=== PATIENT | female | born 1950 | race Caucasian/White ===

== ENCOUNTER 2017-02-21 20:51 | Inpatient (IN) ==
[2017-02-21 23:02] LABS: Red Cell Distribution Width 12.3 % (11.5-14.5)
[2017-02-21 23:03] LABS: Hemoglobin 14.1 g/dL (11.5-15.4); Mean Corpuscular HGB Conc 36.2 g/dL (31.6-35.5); Mean Corpuscular Hemoglobin 31.8 pg (28.0-33.3); Mean Platelet Volume 9.7 fL (9.4-12.4); Red Blood Count 4.43 M/mcL (3.82-4.97)
[2017-02-21 23:17] LABS: Alanine Aminotransferase 37 Units/L (0-55); Albumin 3.3 g/dL (3.5-5.0); Albumin/Globulin Ratio 1.1 (1.1-2.2); Alkaline Phosphatase 106 Units/L (38-126); Aspartate Amino Transferase 84 Units/L (5-34); BUN/Creatinine Ratio 15 (6-26); Bilirubin,Direct 0.5 mg/dL (0.0-0.5); Bilirubin,Indirect 0.6 mg/dL (0.0-1.2); Bilirubin,Total 1.1 mg/dL (0.2-1.2); Blood Urea Nitrogen 11 mg/dL (7-20); Calcium 8.4 mg/dL (8.6-10.8); Carbon Dioxide 22 mEq/L (19-29); Chloride 98 mEq/L (98-109); Glucose 110 mg/dL (70-99); Lipase 15 Units/L (8-78); Osmolality,Calculated 274 (280-300); Potassium 2.9 mEq/L (3.5-4.5); Sodium 132 mEq/L (136-145); Total Protein 6.3 g/dL (6.0-8.3); eGFR For African Americans > 60 (> 60); eGFR For Non-African Americans > 60 (> 60)
[2017-02-21] MEDS ORDERED: 0.9 % Sodium Chloride 1,000 ML IVC ONE (23:24)
[2017-02-21] MEDS ORDERED: Ondansetron 4 MG/2 ML VIAL IVP ONE (23:31)
[2017-02-21 23:32] LABS: Platelet Count 85 K/mcL (140-400)
[2017-02-21] MEDS ORDERED: *HR* Morphine 2 MG/ML SYRINGE IVP ONE (23:32)
[2017-02-21 23:42] LABS: Lymphocytes # 0.4 K/mcL (0.6-4.6); Monocytes # 0.2 K/mcL (0.0-1.3)
[2017-02-21 23:43] LABS: Neutrophils # 1.3 K/mcL (1.6-8.9); Platelet Estimate Decreased (Normal); Reactive Lymphocytes Present (Not Present)
--- NOTE | 2017-02-21 23:53 | Emergency Department Note ---
Disposition Clinical Impression: Hypokalemia Nausea & vomiting Qualifiers: Vomiting type: unspecified Vomiting Intractability: unspecified Qualified Code( s): R11.2 - Nausea with vomiting, unspecified Disposition: Admitted As Inpatient Condition: Good Time of Disposition: 02:20 General Adult HPI - General Chief complaint: ED Abdominal Pain Stated complaint: possible blockage Time Seen by Provider: 02/21/17 23:07 Source: patient Limitations: no limitations Nursing Notes Reviewed: Yes Vital Signs Reviewed: Yes - History of Present Illness HPI Narrative: 65-year-old female since with abdominal pain. She states she has not had a bowel movement 2 days. She had been seen at an urgent care prior to arrival, and was told that she might have a blockage after she had received an x-ray. They had recommended she be seen here in the emergency department. She arrived via squad. She has been vomiting. She reports a fever at home of 101 orally, and squad reports show fever of 103. She is comes her emesis is yellow urine Pain Scale: 6 - Related Data Allergies Allergy/AdvReac Type Severity Reaction Status Date / Time pentazocine [From Jazmin] AdvReac Hives Verified 03/08/16 09:09 Sulfa (Sulfonamide AdvReac Headache Verified 03/08/16 09:09 Antibiotics) All systems ED: reviewed and negative except as stated. Constitutional: Reports: fever Eyes: Denies: vision change ENT ED: Denies: throat pain Cardiovascular: Denies: palpitations Respiratory: Denies: dyspnea Gastrointestinal: Reports: as per HPI. Denies: diarrhea, constipation Genitourinary: Denies: dysuria Musculoskeletal: Denies: back pain, neck pain Integumentary: Denies: rash Neurological: Denies: headache Psychiatric: Denies: anxiety Endocrine: Denies: fatigue Hematological/Lymphatic: Denies: easy bleeding Allergic/Immunologic: Denies: facial swelling Past Medical History - Past Medical History Medical history: Reports: hypertension - Social History Smoking Status: Never smoker Smokeless Tobacco Status: No Alcohol use: Reports: none Drug use: Reports: none Physical Exam - General Limitations: no limitations General appearance: alert, in no apparent distress - Head Head exam: normocephalic - Eye Eye exam: Present: EOMI. Absent: conjunctival injection - ENT ENT exam: mucous membranes moist - Neck Neck exam: Present: full ROM - Chest Chest inspection: Present: symmetric chest wall rise - Respiratory Respiratory exam: Present: normal lung sounds bilaterally. Absent: respiratory distress - Cardiovascular Cardiovascular exam: Present: normal rhythm, tachycardia - Abdominal Exam Abdominal exam: Present: soft, tenderness Abdominal tenderness: Present: RUQ, LUQ - Extremities Exam Extremities exam: Present: normal inspection, full ROM, normal capillary refill - Back Exam Back exam: Present: full ROM, CVA tenderness (R) - Neurological Exam Neurological exam: Present: alert, oriented X3 - Psychiatric Psychiatric exam: Present: normal affect, normal mood - Skin Skin exam: Present: warm, dry, intact, normal color. Absent: rash, cyanosis, diaphoresis Course Course Narrative: Patient arrives by squad from a local urgent care. Concern for abdominal pain, urgent care was concerned for a possible blockage. Patient is slightly tachycardic. She is febrile. Patient seen and examined. She is in no acute distress but looks uncomfortable. She complains of shortness of breath, fever, right and left upper abdominal pain, decreased bowel movements, and right-sided low back pain. Workup initiated analgesics ordered. The patient has been febrile and tachycardic will initiate septic workup as well. - Reevaluation(s) Reevaluation #1: Lab work shows white blood cell, 2.0, with decreased neutrophils. Patient denies any history of splenic disorders, chemotherapy, immunecompromised state, or biologic medications. Patient is also hypokalemic. Discussed patient with Dr. Paz, who agreed with IV potassium since patient is on nothing by mouth, and CT abdomen for abdominal pain. Patient's renal function within limits. Time: 00:02 Reevaluation #2: Pt discussed with and accepted by hospitalist Dr. Maxwell Time: 01:18 Vital Signs Temperature 99 F 02/21/17 21:11 Pulse Rate 104 02/21/17 21:11 Respiratory Rate 20 02/21/17 21:11 Blood Pressure 118/74 02/21/17 21:11 O2 Sat by Pulse Oximetry 94 02/21/17 21:11 Temperature 99 F 02/21/17 21:11 Pulse Rate 91 02/22/17 01:22 Respiratory Rate 16 02/22/17 01:22 Blood Pressure 124/70 02/22/17 01:22 O2 Sat by Pulse Oximetry 97 02/22/17 01:22 Oxygen Delivery Oxygen Delivery Room Air Medical Decision Making - Lab Data Lab results reviewed: Yes I reviewed the patient's lab results. Result diagrams: 02/21/17 22:52 02/21/17 22:52 Lab Results 02/21/17 02/21/17 02/21/17 Range/Units 22:52 22:52 22:52 WBC 2.0 L (4.3-11.1) K/mcL RBC 4.43 (3.82-4.97) M/mcL Hgb 14.1 (11.5-15.4) g/dL Hct 39.0 (35.3-44.9) % MCV 88.0 (83.0-100.0) fL MCH 31.8 (28.0-33.3) pg MCHC 36.2 H (31.6-35.5) g/dL RDW 12.3 (11.5-14.5) % Plt Count 85 L (140-400) K/mcL MPV 9.7 (9.4-12.4) fL Seg Neutrophils % 49.0 % Band Neutrophils % 14.0 H (0-4) % Lymphocytes % 22.0 % Monocytes % 9.0 % Eosinophils % 2.0 % Basophils % 2.0 % Myelocytes % 2.0 H (0) % Neutrophils # 1.3 L (1.6-8.9) K/mcL Lymphocytes # 0.4 L (0.6-4.6) K/mcL Monocytes # 0.2 (0.0-1.3) K/mcL Eosinophils # 0.0 (0.0-0.6) K/mcL Basophils # 0.0 (0.0-0.2) K/mcL Reactive Lymphocytes Present A (Not Present) Platelet Estimate Decreased L (Normal) ESR (0-15) mm/hr Sodium 132 L (136-145) mEq/L Potassium 2.9 L (3.5-4.5) mEq/L Chloride 98 (98-109) mEq/L Carbon Dioxide 22 (19-29) mEq/L BUN 11 (7-20) mg/dL Creatinine 0.73 (0.57-1.11) mg/dL Est GFR ( Amer) > 60 (> 60) Est GFR (Non-Af Amer) > 60 (> 60) BUN/Creatinine Ratio 15 (6-26) Glucose 110 H (70-99) mg/dL Calculated Osmolality 274 L (280-300) Lactic Acid 0.9 (0.5-2.2) mmol/L Calcium 8.4 L (8.6-10.8) mg/dL Total Bilirubin 1.1 (0.2-1.2) mg/dL Direct Bilirubin 0.5 (0.0-0.5) mg/dL Indirect Bilirubin 0.6 (0.0-1.2) mg/dL AST 84 H (5-34) Units/L ALT 37 (0-55) Units/L Alkaline Phosphatase 106 (38-126) Units/L C-Reactive Protein (Less than 5) mg/L Serum Total Protein 6.3 (6.0-8.3) g/dL Albumin 3.3 L (3.5-5.0) g/dL Globulin 3.0 (2.4-3.5) g/dL Albumin/Globulin Ratio 1.1 (1.1-2.2) Lipase 15 (8-78) Units/L Urine Color (Yellow) Urine Clarity (Clear) Urine pH (5.0-8.0) pH Units Ur Specific [place] (1.010-1.025) Urine Protein (Neg-Trace) mg/dL Urine Glucose (UA) (Normal) mg/dL Urine Ketones (Negative) mg/dL Urine Blood (Negative) Urine Nitrite (Negative) Urine Bilirubin (Negative) Urine Urobilinogen (Normal) mg/dL Ur Leukocyte Esterase (Negative) Urine Microscopic RBC (0-3) per hpf Urine Microscopic WBC (0-3) per hpf Ur Squamous Epith Cells (None-Few) per lpf Urine Bacteria (None-Few) per hpf Hyaline Casts (None-Few) per lpf Urine Mucus (Few) Urine Yeast (None Seen) per hpf Ur Culture Indicated? (NO) 02/21/17 02/21/17 02/21/17 Range/Units 23:20 23:59 23:59 WBC (4.3-11.1) K/mcL RBC (3.82-4.97) M/mcL Hgb (11.5-15.4) g/dL Hct (35.3-44.9) % MCV (83.0-100.0) fL MCH (28.0-33.3) pg MCHC (31.6-35.5) g/dL RDW (11.5-14.5) % Plt Count (140-400) K/mcL MPV (9.4-12.4) fL Seg Neutrophils % % Band Neutrophils % (0-4) % Lymphocytes % % Monocytes % % Eosinophils % % Basophils % % Myelocytes % (0) % Neutrophils # (1.6-8.9) K/mcL Lymphocytes # (0.6-4.6) K/mcL Monocytes # (0.0-1.3) K/mcL Eosinophils # (0.0-0.6) K/mcL Basophils # (0.0-0.2) K/mcL Reactive Lymphocytes (Not Present) Platelet Estimate (Normal) ESR 7 (0-15) mm/hr Sodium (136-145) mEq/L Potassium (3.5-4.5) mEq/L Chloride (98-109) mEq/L Carbon Dioxide (19-29) mEq/L BUN (7-20) mg/dL Creatinine (0.57-1.11) mg/dL Est GFR ( Amer) (> 60) Est GFR (Non-Af Amer) (> 60) BUN/Creatinine Ratio (6-26) Glucose (70-99) mg/dL Calculated Osmolality (280-300) Lactic Acid (0.5-2.2) mmol/L Calcium (8.6-10.8) mg/dL Total Bilirubin (0.2-1.2) mg/dL Direct Bilirubin (0.0-0.5) mg/dL Indirect Bilirubin (0.0-1.2) mg/dL AST (5-34) Units/L ALT (0-55) Units/L Alkaline Phosphatase (38-126) Units/L C-Reactive Protein 99 H (Less than 5) mg/L Serum Total Protein (6.0-8.3) g/dL Albumin (3.5-5.0) g/dL Globulin (2.4-3.5) g/dL Albumin/Globulin Ratio (1.1-2.2) Lipase (8-78) Units/L Urine Color Dark Yellow (Yellow) Urine Clarity Cloudy A (Clear) Urine pH 6.0 (5.0-8.0) pH Units Ur Specific [place] 1.027 H (1.010-1.025) Urine Protein 100 H (Neg-Trace) mg/dL Urine Glucose (UA) Normal (Normal) mg/dL Urine Ketones 80 H (Negative) mg/dL Urine Blood Moderate H (Negative) Urine Nitrite Negative (Negative) Urine Bilirubin Moderate H (Negative) Urine Urobilinogen Normal (Normal) mg/dL Ur Leukocyte Esterase Negative (Negative) Urine Microscopic RBC 3-5 H (0-3) per hpf Urine Microscopic WBC 3-5 H (0-3) per hpf Ur Squamous Epith Cells Many H (None-Few) per lpf Urine Bacteria Few (None-Few) per hpf Hyaline Casts Few (None-Few) per lpf Urine Mucus Many H (Few) Urine Yeast Many H (None Seen) per hpf Ur Culture Indicated? NO (NO) - Radiology Data Radiology results reviewed: Yes I reviewed the patient's radiology results.
[2017-02-21] MEDS ORDERED: Potassium Chloride 40 MEQ, Lidocaine 1% 2 ML in D5% in Water 500 ML IVPB ONE (23:57)
[2017-02-22 00:13] LABS: Bilirubin,Urine Moderate (Negative); Blood,Urine Moderate (Negative); Clarity,Urine Cloudy (Clear); Color,Urine Dark Yellow (Yellow); Glucose,Urine (UA) Normal (Normal); Ketones,Urine 80 mg/dL (Negative); Leukocyte Esterase,Urine Negative (Negative); Nitrite,Urine Negative (Negative); Protein,Urine 100 mg/dL (Neg-Trace); Specific Gravity,Urine 1.027 (1.010-1.025); Urobilinogen,Urine Normal (Normal)
[2017-02-22 00:24] LABS: Hyaline Casts,Urine Few per lpf (None-Few); Squamous Epithelial Cell,Urine Many per lpf (None-Few)
[2017-02-22 00:49] LABS: Yeast,Urine Many per hpf (None Seen)
[2017-02-22 00:50] LABS: Bacteria,Urine Few per hpf (None-Few); Mucus,Urine Many (Few)
[2017-02-22] MEDS ORDERED: Ondansetron 4 MG/2 ML VIAL IVP ONE (00:53)
[2017-02-22] MEDS ORDERED: *HR* Morphine 2 MG/ML SYRINGE IVP ONE (02:19)
--- NOTE | 2017-02-22 04:07 | Internal Med History&Physical ---
<Zeke Millard - Last Filed: 02/22/17 04:05> Date of Encounter: 02/22/17 Time of Encounter: 02:45 Assessment and Plan (1) Leukopenia Current visit: Yes Status: Acute Patient has a white count of 2. -Patient's condition possibly due to mononucleosis. -Imaging studies show an enlarged spleen. -Monospot test ordered. -Blood cultures ordered. Qualifiers: Qualified Code(s): D72.819 - Decreased white blood cell count, unspecified (2) Thrombocytopenia Current visit: Yes Status: Acute Patient's thrombocytopenia. -Imaging shows likely. -Monospot test for possible mononucleosis. -Blood cultures have also been ordered. (3) Hypokalemia Current visit: Yes Status: Acute Replace potassium. (4) Nausea & vomiting Current visit: Yes Status: Acute Patient presents with nausea and vomiting. -Patient given Zofran for nausea. -Patient has been given potassium for hypokalemia, which is likely due to patient's vomiting. Qualifiers: Vomiting type: unspecified Vomiting Intractability: unspecified Qualified Code(s): R11.2 - Nausea with vomiting, unspecified Internal Medicine - H&P: HPI Admitted From: Home History of present illness: Ms. Garcia is a 66 year old female who presented to the emergency department with a chief complaint of abdominal pain. Patient states that she has been experiencing a fever for one week, and abdominal pain for 2 days. During this time, she has not had a bowel movement. Patient had been seen prior to arrival at urgent care facility. During her visit there, patient was told that she may have a bowel obstruction after she received an x-ray. Urgent care facility recommended that she be sent here. Her symptoms include fever, chills, nausea, vomiting, and upper abdominal pain in both right upper quadrant and left upper quadrant. Patient was slightly tachycardic upon arrival. Her temperature was approximately 103 when she was seen by squad. She denies sweats, fatigue, weight loss, lower abdominal pain, or changes in urination. Past Med Surg Social Fam HX - Past Medical History Medical history: aortic aneurysm, arthritis, hypertension, thyroid disease Psychiatric history: depression - Past Surgical History Surgical History: knee replacement, thyroidectomy - Social History Smoking Status: Never smoker Smokeless Tobacco Status: No Alcohol use: occasionally Drug use: none Internal Medicine - H&P: Meds Claritin 10/06/17 [History] Diovan Hct 160-12.5 mg Tab 02/22/17 [History] Metoprolol 50 mg PO DAILY 02/22/17 [History] Norvasc 5 mg PO DAILY 02/22/17 [History] Synthroid 0.15 mg PO DAILY 02/22/17 [History] Zoloft 25 mg PO DAILY 02/22/17 [History] 3 Allergy/AdvReac Type Severity Reaction Status Date / Time pentazocine [From Talwin] AdvReac Hives Verified 03/08/16 09:09 Sulfa (Sulfonamide AdvReac Headache Verified 03/08/16 09:09 Antibiotics) All Systems PM: A 10-system review of systems was performed and is negative for pertinent findings except as documented above in the HPI. - Constitutional Constitutional: chills, fever(s), no night sweats - Cardiovascular Cardiovascular ROS IM: no chest pain, no diaphoresis, no dyspnea, no syncope - Respiratory Respiratory: no cough, no dyspnea, no wheezing, no excessive phlegm production - Gastrointestinal Gastrointestinal: abdominal pain, change in bowel habits, no diarrhea, no hematemesis, no hematochezia, no melena, no nausea, no vomiting - Genitourinary Genitourinary: no change in urinary stream, no dysuria, no hematuria - Musculoskeletal Musculoskeletal ROS IM: no numbness, no tingling - Integumentary Integumentary IM: no rash, no unusual bruising - Hematologic/Lymphatic Hematologic/Lymphatic: no easy bruising - Constitutional Vitals: Temp Pulse Resp BP Pulse Ox 99.8 F H 81 18 118/68 95 02/22/17 03:48 02/22/17 03:48 02/22/17 03:48 02/22/17 03:48 02/22/17 03:48 - Head Head exam: Present: atraumatic, normocephalic - Respiratory Respiratory exam: Present: CTAB. Absent: accessory muscle use, rales, rhonchi, wheezes - Cardiovascular Cardiovascular exam: Present: RRR, +S1, +S2. Absent: diastolic murmur, gallop, rubs, systolic murmur - GI/Abdominal GI/Abdominal exam: Present: hypoactive bowel sounds, soft, tenderness. Absent: distended - Extremities Exam Extremities exam: Present: warm, radial pulses palpable and symmetrical - Skin Skin exam: Present: dry, intact Internal Med - H&P Results - Labs CBC & Chem 7: 02/21/17 22:52 02/21/17 22:52 <Monster Modi - Last Filed: 02/22/17 05:50> Date of Encounter: 02/22/17 Time of Encounter: 05:00 Internal Medicine - H&P: HPI Chief complaint: fevers; abdominal pain; body aches Admitted From: Emergency Dept Plans for Post Hospital Care: Home History of present illness: Past Med Surg Social Fam HX - Past Medical History Attestation: Yes The following information was validated with the patient. Source: patient, old records reviewed - Family History Mother Hx Family Cancer: Yes (bone) - Constitutional Constitutional: chills, fever(s), no night sweats - EENT Eyes: no blurry vision, no change in vision Ears: no ear pain, no tinnitus Nose, mouth and throat: no nasal congestion, no sinus pressure, no sore throat - Cardiovascular Cardiovascular ROS IM: no chest pain, no dyspnea, no dyspnea on exertion - Respiratory Respiratory: no cough, no dyspnea, no hemoptysis - Gastrointestinal Gastrointestinal: abdominal pain, dyspepsia, nausea, no diarrhea, no hematemesis , no hematochezia, no melena, no vomiting - Genitourinary Genitourinary: no flank pain, no hematuria - Musculoskeletal Musculoskeletal ROS IM: arthralgias, myalgias, no joint swelling - Neurological Neurological ROS: no dizziness, no focal weakness, no frequent falls - Psychiatric Psychiatric: no anxiety, no depression - Endocrine Endocrine IM: no polydipsia, no polyuria - Allergic/Immunologic Allergic/Immunologic: GI upset with certain foods, no wheezing - Constitutional Vitals: Temp Pulse Resp BP Pulse Ox 99.8 F H 81 18 118/68 95 02/22/17 03:48 02/22/17 03:48 02/22/17 03:48 02/22/17 03:48 02/22/17 03:48 General appearance: Present: mild distress, A&O X 3 Exam: ill appearing but non-toxic; dehydrated - Head Head exam: Present: atraumatic, normal inspection - Eye Eye exam: Present: EOMI, PERRL. Absent: scleral icterus Pupils: Present: normal accommodation - ENT ENT exam: Present: mucous membranes dry, normal exam - Neck Neck exam general surgery: Present: full ROM, lymphadenopathy (mild anterior cervical lymphadenopathy), supple. Absent: tenderness - Respiratory Respiratory exam: Present: CTAB. Absent: rales, rhonchi, wheezes - Cardiovascular Cardiovascular exam: Present: RRR, +S1, +S2. Absent: diastolic murmur, systolic murmur - GI/Abdominal GI/Abdominal exam: Present: hypoactive bowel sounds, soft, tenderness (RUQ pain with mild LUQ pain). Absent: guarding, hepatomegaly, mass, rebound, splenomegaly, no peritoneal signs - Extremities Exam Extremities exam: Present: full ROM, warm, radial pulses palpable and symmetrical. Absent: calf tenderness, joint swelling, tenderness Additional comments: no inguinal or axillary lymphadenopathy - Back Exam Back exam: Absent: CVA tenderness (L), CVA tenderness (R) - Neurological Exam Neurological exam: Present: alert, CN II-XII intact, oriented X3, no focal deficits - Psychiatric Psychiatric exam: Present: normal affect, normal mood - Skin Skin exam: Present: dry, intact, warm. Absent: rash Internal Med - H&P Results - Labs CBC & Chem 7: 02/21/17 22:52 02/21/17 22:52 - Diagnostic Studies Chest x-ray Status: image reviewed by me (negative) - Attending Attestation I discussed the patient [place], PMH, ROS, lab data, and exam findings with Dr. Millard. I then saw and examined patient independently as well. Patient was feeling well until 4-5 days ago when she developed fevers to 103 degrees F. She has had associated muscle/body aches, sore joints, and mild sore throat. She had been unable to eat or drink much as it flares up her RUQ pain. She has been told in the past she has gall bladder disease, but she did not require surgery then. Her leukopenia and thrombocytopenia I believe are due to viral suppression of her bone marrow (suspect Mononucleosis). We will hydrate her, check a Monospot, and repeat labs this morning. We will start her on antibiotics to cover GI franchesca and order a GB ultrasound for concerns of possible cholecystitis. However, based upon initial impression, I feel she has a mono-like illness. We will trend her CBC and chemistries. If her WBC and platelet counts continue to drop, she may need to see Hematology/Oncology. She is not anemic however, and I strongly feel this is a viral process at this point. Other than my comments above and noted exam findings, I agree with Dr. Millard's assessment and plan.
[2017-02-22] MEDS ORDERED: D5% in Water 1,000 ML IVC SCH (04:15)
[2017-02-22] MEDS: *HR* Morphine 2 MG/ML SYRINGE IVP PRN ×5 (05:26→20:09)
[2017-02-22] MEDS: D5% in 0.9% NACL w KCl 20 MEQ/1,000 ML MLS IVC SCH ×2 (06:00→19:13)
[2017-02-22 06:36] LABS: Basophils % 0.7 %; Immature Granulocytes % 0.7 % (0-4); Mean Platelet Volume 9.7 fL (9.4-12.4)
[2017-02-22 06:38] LABS: Hematocrit 33.3 % (35.3-44.9); Hemoglobin 11.9 g/dL (11.5-15.4); Lymphocytes # 0.5 K/mcL (0.6-4.6); Lymphocytes % 35.8 %; Mean Corpuscular HGB Conc 35.7 g/dL (31.6-35.5); Mean Corpuscular Hemoglobin 31.5 pg (28.0-33.3); Mean Corpuscular Volume 88.1 fL (83.0-100.0); Monocytes # 0.2 K/mcL (0.0-1.3); Monocytes % 10.8 %; Neutrophils # 0.8 K/mcL (1.6-8.9); Nucleated Red Blood Cells 1.4 /100 WBC (0); Platelet Count 75 K/mcL (140-400); Red Blood Count 3.78 M/mcL (3.82-4.97); Red Cell Distribution Width 12.4 % (11.5-14.5)
[2017-02-22 06:50] LABS: Alanine Aminotransferase 35 Units/L (0-55); Albumin 2.8 g/dL (3.5-5.0); Albumin/Globulin Ratio 1.2 (1.1-2.2); Alkaline Phosphatase 85 Units/L (38-126); Amylase 25 Units/L (25-125); Aspartate Amino Transferase 76 Units/L (5-34); BUN/Creatinine Ratio 13 (6-26); Bilirubin,Total 0.7 mg/dL (0.2-1.2); Blood Urea Nitrogen 9 mg/dL (7-20); Calcium 7.6 mg/dL (8.6-10.8); Carbon Dioxide 24 mEq/L (19-29); Chloride 100 mEq/L (98-109); Globulin 2.3 g/dL (2.4-3.5); Glucose 99 mg/dL (70-99); Lipase 14 Units/L (8-78); Osmolality,Calculated 271 (280-300); Sodium 131 mEq/L (136-145); Total Protein 5.1 g/dL (6.0-8.3); eGFR For African Americans > 60 (> 60); eGFR For Non-African Americans > 60 (> 60)
[2017-02-22 06:58] LABS: Platelet Estimate Decreased (Normal); Reactive Lymphocytes Present (Not Present)
[2017-02-22] MEDS ORDERED: Ondansetron 4 MG/2 ML VIAL ONE (07:35)
[2017-02-22] MEDS ORDERED: Ondansetron 4 MG/2 ML VIAL IVP PRN (07:37)
[2017-02-22] MEDS ORDERED: MetroNIDAZOLE 250 MG/50 ML 250 MG/50 ML BAG IVPB SCH (08:00)
[2017-02-22] MEDS ORDERED: MetroNIDAZOLE 500 MG/100 ML 500 MG/100 ML BAG IVPB SCH (08:00)
[2017-02-22 08:46] LABS: Magnesium 1.3 mg/dL (1.6-2.6)
--- NOTE | 2017-02-22 09:45 | Internal Med Progress Note ---
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 vs malignancy WBC 1.9, bandemia on presentation Splenomegaly present on CT, Monospot negative Peripheral smear ordered Consult to hematology oncology Qualifiers: Leukopenia type: unspecified Qualified Code(s): D72.819 - Decreased white blood cell count, unspecified (2) Thrombocytopenia Current Visit: Yes Status: Acute Assessment and plan: Thrombocytopenia in conjunction with leukopenia, possibly secondary to ITP vs infection vs malignancy Monospot negative Peripheral smear pending Hematology oncology consult ordered (3) Fever Current Visit: Yes Status: Acute Assessment and plan: Fever of unknown origin, peak 103 Patient has fever with neutropenia and bandemia, infectious source unclear. HIV test pending Nausea and vomiting present with no diarrhea. Abdominal CT did show enlarged spleen with left adnexal mass Right upper quadrant ultrasound negative Patient was initially started on ciprofloxacin and metronidazole, however due to the bandemia we will change the medications to vancomycin and Zosyn Qualifiers: Fever type: unspecified Qualified Code(s): R50.9 - Fever, unspecified (4) Hypokalemia Current Visit: Yes Status: Acute Assessment and plan: Potassium on admission 3.0 Patient is receiving IV and by mouth potassium Magnesium 1.3, repleting We will check it in the morning (5) Anemia Current Visit: Yes Status: Acute Assessment and plan: Acute drop in hemoglobin from 14 to 12.4 Etiology of anemia is unknown, however there is concern for hemolysis Bilirubin found in urine LDH is high, haptoglobin pending Monitor and recheck in the morning Qualifiers: Anemia type: unspecified type Qualified Code(s): D64.9 - Anemia, unspecified (6) Nausea & vomiting Current Visit: Yes Status: Acute Assessment and plan: Nausea and vomiting ongoing Antiemetics ordered We will replace electrolytes and fluids as needed Qualifiers: Vomiting type: unspecified Vomiting Intractability: unspecified Qualified Code(s): R11.2 - Nausea with vomiting, unspecified (7) DVT prophylaxis Current Visit: Yes Status: Acute - Subjective Interval history: The patient was resumed at time of examination she is in minimal distress. She elaborates on her story to me quite a bit. In addition to the abdominal pain of 3 days, and fever for one week, the patient admits to sharp pain that she describes as bone deep in her right humerus and left hip which has been going on since the fever started. This has never happened before. She also elucidated a family history of colon cancer in her mother and prostate cancer in her dad. She denies melena, however admits to frequent hematochezia secondary to known hemorrhoid. The patient's skin also appears relatively darkened bronze, she says that she has ancestry and that this is normal for her although she did wonder if maybe she was a bit more yellow than usual. - Constitutional Vitals: Temp Pulse Resp BP Pulse Ox 98.8 F 78 16 121/65 95 02/22/17 06:40 02/22/17 06:40 02/22/17 06:40 02/22/17 06:40 02/22/17 06:40 General appearance: Present: mild distress, A&O X 3, pleasant - Head Head exam: Present: atraumatic, normocephalic - Eye Eye exam: Present: PERRL, conjuntiva pink, sclera anicteric Pupils: Present: PERRL - Neck Neck exam general surgery: Present: lymphadenopathy, tenderness, supple, trachea midline Additional comments: Mild lymphadenopathy noted bilaterally anteriorly. There is tenderness to palpation along anterior and posterior neck - Respiratory Respiratory exam: Present: CTAB. Absent: accessory muscle use, rales, rhonchi, wheezes - Cardiovascular Cardiovascular exam: Present: RRR, +S1, +S2. Absent: diastolic murmur, gallop, rubs, systolic murmur - GI/Abdominal GI/Abdominal exam: Present: normal bowel sounds, soft, tenderness, no peritoneal signs. Absent: distended Additional comments: Tenderness to palpation present in right upper quadrant > left upper quadrant. Leon sign negative - Extremities Exam Extremities exam: Present: warm, radial pulses palpable and symmetrical. Absent : calf tenderness, cyanotic, pedal edema - Neurological Exam Neurological exam: Present: CN II-XII intact, oriented X3, no focal deficits. Absent: pronater drift, facial droop, speech deficit - Skin Skin exam: Present: dry, intact Additional comments: There is no purpura or rash. Skin is darkened bronze, patient says this is normal Internal Medicine: Result - Labs CBC & Chem 7: 02/22/17 13:20 02/22/17 06:19 Labs: Short CBC 02/22/17 Range/Units 06:19 WBC 1.5 L (4.3-11.1) K/mcL Hgb 11.9 D (11.5-15.4) g/dL Hct 33.3 L (35.3-44.9) % Plt Count 75 L (140-400) K/mcL Neutrophils # 0.8 L (1.6-8.9) K/mcL BMP 02/22/17 06:19 Sodium 131 L Potassium 3.0 L Chloride 100 Carbon Dioxide 24 BUN 9 Creatinine 0.70 Glucose 99 Calcium 7.6 L Liver Function 02/22/17 Range/Units 06:19 Total Bilirubin 0.7 (0.2-1.2) mg/dL AST 76 H (5-34) Units/L ALT 35 (0-55) Units/L Alkaline Phosphatase 85 (38-126) Units/L Albumin 2.8 L (3.5-5.0) g/dL - VTE Documentation of Mechanical Device: Intermittent pneumatic compression device Consult Discharge Plan - Plan Referrals: Caroline Thomas, [employer] [Primary Care Provider] - <William Tillman - Last Filed: 02/22/17 19:11> Date of Encounter: 02/22/17 - Constitutional Vitals: Temp Pulse Resp BP Pulse Ox 99.2 F 88 18 139/65 96 02/22/17 19:05 02/22/17 19:05 02/22/17 19:05 02/22/17 19:05 02/22/17 19:05 Internal Medicine: Result - Labs CBC & Chem 7: 02/22/17 13:20 02/22/17 06:19 Labs: Short CBC 02/22/17 02/22/17 Range/Units 06:19 13:20 WBC 1.5 L 1.9 L (4.3-11.1) K/mcL Hgb 11.9 D 12.8 (11.5-15.4) g/dL Hct 33.3 L 36.0 (35.3-44.9) % Plt Count 75 L 84 L (140-400) K/mcL Neutrophils # 0.8 L 1.1 L (1.6-8.9) K/mcL BMP 02/22/17 06:19 Sodium 131 L Potassium 3.0 L Chloride 100 Carbon Dioxide 24 BUN 9 Creatinine 0.70 Glucose 99 Calcium 7.6 L Liver Function 02/22/17 Range/Units 06:19 Total Bilirubin 0.7 (0.2-1.2) mg/dL AST 76 H (5-34) Units/L ALT 35 (0-55) Units/L Alkaline Phosphatase 85 (38-126) Units/L Albumin 2.8 L (3.5-5.0) g/dL - Impressions Impressions Gallbladder Ultrasound 02/22/17 08:30 IMPRESSION: Unremarkable right upper quadrant ultrasound. D/ / Kermit Brooke MD / Kermit Brooke MD Interpreting Provider: Kermit Brooke MD - Attending Attestation I examined this patient and my medical decision-making was reviewed with the Resident Physician on 02/22/17. I agree with the documented findings, disposition and treatment plan as described except to the extent set forth below. Ms Garcia was admitted early this AM with pancytopenia and concern for infection. She continues to be nauseated and achy. Exam Heart reg No wheeze Abd soft Continue plan as ordered.
[2017-02-22] MEDS ORDERED: Vancomycin 1,000 MG in D5% in Water 250 ML IVPB ONE (10:32)
[2017-02-22] MEDS: *HR* Promethazine 25 MG/ML VIAL IVP PRN ×3 (10:46→23:20)
[2017-02-22] MEDS: Vancomycin 1,250 MG in D5% in Water 250 ML IVPB SCH ×2 (11:56→23:20)
[2017-02-22] MEDS: Magnesium Sulfate 2 GM in D5% in Water 100 ML IVPB SCH ×2 (12:03→21:01)
[2017-02-22] MEDS: Piperacillin/Tazobactam 3.375 GM in D5% in Water (Mini-Bag+) 100 ML IVPB SCH ×2 (12:05→20:48)
[2017-02-22 13:31] LABS: Basophils % 1.1 %; Hemoglobin 12.8 g/dL (11.5-15.4); Immature Granulocytes % 1.1 % (0-4); Lymphocytes # 0.6 K/mcL (0.6-4.6); Lymphocytes % 30.9 %; Mean Corpuscular HGB Conc 35.6 g/dL (31.6-35.5); Mean Corpuscular Hemoglobin 31.1 pg (28.0-33.3); Mean Corpuscular Volume 87.6 fL (83.0-100.0); Mean Platelet Volume 9.7 fL (9.4-12.4); Monocytes # 0.1 K/mcL (0.0-1.3); Monocytes % 7.4 %; Neutrophils # 1.1 K/mcL (1.6-8.9); Platelet Count 84 K/mcL (140-400); Red Blood Count 4.11 M/mcL (3.82-4.97); Red Cell Distribution Width 12.4 % (11.5-14.5); Segmented Neutrophils % 59.5 %
--- NOTE | 2017-02-22 13:33 | Oncology Inp Consult Note ---
<Nohemy Wiley - Last Filed: 02/22/17 15:25> Date of Encounter: 02/22/17 Time of Encounter: 13:00 Assessment and Plan (1) Leukopenia Status: Acute Assessment and plan: - 5-day history of intermittent fever, sweating and body ache with WBC 12 & ban 14% on admission. - Likely secondary to viral infection. Other differentials include myelodysplastic syndromes, malignancy. - Infectious mononucleosis assay negative. - No indication for urgent bone marrow biopsy at this time. - Outpatient follow-up with hematology/oncology in 3 weeks and consider bone marrow biopsy if leukopenia/thrombocytopenia persists at that time. - Continue to monitor. Qualifiers: Leukopenia type: unspecified Qualified Code(s): D72.819 - Decreased white blood cell count, unspecified (2) Thrombocytopenia Status: Acute Assessment and plan: - Platelet count 85 on admission and 75 this morning. - Differential include viral infection, malignancy, cirrhosis (doubt given the relative normal appearance of liver on imagings). - Continue to monitor. (3) Anemia Status: Acute Assessment and plan: - Hgb dropped from 14.1 on admission to 11.9 today. - Can be dilutional as patient received IV fluid resuscitation. - Continue to monitor. Qualifiers: Anemia type: unspecified type Qualified Code(s): D64.9 - Anemia, unspecified - Data of Consult Patient: new to practice Consult date: 02/22/17 Requesting Physician: William Tillman DO Primary Care Provider: Caroline Thomas CNP - Consult Narrative Reason for consult: Leukopenia with fever History of present illness: Ms. 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 Patient presented with complaint of fever and abdominal pain and was admitted on 02/22/17 for leukopenia and thrombocytopenia. [facility] hematology/oncology is consulted for leukopenia with fever. Patient reports having intermittent fever as high as 101 since 02/18/17. It's associated sweating and diffuse body ache, especially on right upper arm and left hip. Patient started to have sharp upper quadrant abdominal pain, the right greater than the left, since 02/20/17. It's associated with nausea and vomiting and aggravated by sitting up. Patient states she is unsure about weight change as she had not measured her weight recdntlly. Patient denies diarrhea, hematochezia , melena, shortness of breath, chest pain. Patient's last colonoscopy was 5 years ago. Patient reports family history of cancer for her father (prostate cancer), mother (head and neck cancer) and brother (colon cancer). Past Med Surg Social Fam HX - Past Medical History Medical history: aortic aneurysm, arthritis, hypertension, thyroid disease Psychiatric history: depression - Past Surgical History Surgical History: knee replacement, thyroidectomy - Social History Smoking Status: Never smoker Smokeless Tobacco Status: No Alcohol use: occasionally (2-3 glasses of wine per week) Drug use: none - Family History Mother Living Status: Hx Family Cancer: Yes (head and neck) Father Living Status: Hx Family Cancer: Yes (prostate) Brother Hx Family Cancer: Yes (colon) Medications and Allergies Aspirin Enteric Coated [Aspirin EC] 81 mg PO DAILY 02/22/17 [History] Esomeprazole Magnesium [Nexium] 40 mg PO BID 02/22/17 [History] Levothyroxine [Synthroid] 150 mcg PO QAM 02/22/17 [History] Metoprolol XL (24 HR) Succ [Toprol Xl] 50 mg PO DAILY 02/22/17 [History] Sertraline [Zoloft] 25 mg PO DAILY 02/22/17 [History] Acetaminophen [Tylenol] 650 mg PO Q6HR PRN tablet 02/23/17 [Rx] Aspirin Enteric Coated [Aspirin EC] 81 mg PO DAILY tablet. 02/23/17 [Rx] Morphine [Morphine Sulfate] 2 mg IVP Q3H PRN syringe 02/23/17 [Rx] Promethazine [Phenergan] 12.5 mg IVP Q6HR PRN vial 02/23/17 [Rx] 3 Allergy/AdvReac Type Severity Reaction Status Date / Time pentazocine [From Jazmin] AdvReac Hives Verified 03/08/16 09:09 Sulfa (Sulfonamide AdvReac Headache Verified 03/08/16 09:09 Antibiotics) Constitutional: Present: anorexia, excessive sweating, fatigue, fever(s) Eyes: Absent: change in vision Ears: Absent: decreased hearing Nose, mouth and throat: Absent: dysphagia Cardiovascular: Absent: chest pain, leg edema Respiratory: Absent: cough, dyspnea, hemoptysis Gastrointestinal: Present: as per HPI Genitourinary: Absent: dysuria, hematuria Musculoskeletal: Present: arthralgias Neurological: Absent: focal weakness, numbness, tingling Hematologic/Lymphatic: Present: lymphadenopathy (Left neck) Oncology - Exam - Constitutional Vitals: Temp Pulse Resp BP Pulse Ox 98.8 F 82 18 148/72 95 02/22/17 10:12 02/22/17 10:12 02/22/17 10:12 02/22/17 10:12 02/22/17 10:12 General appearance: average body habitus, cooperative, no acute distress - Head Head exam: Present: atraumatic, normocephalic - Eye Eye exam: Present: EOMI, sclera anicteric - ENT ENT exam: Present: mucous membranes dry - Neck Neck exam: Present: lymphadenopathy (Left lateral neck) - Respiratory Respiratory exam: Present: CTAB. Absent: rales, rhonchi, wheezes - Cardiovascular Cardiovascular exam: Present: RRR, +S1, +S2 - GI/Abdominal GI/Abdominal exam: Present: normal bowel sounds, soft, tenderness (RUQ > LUQ) - Extremities Exam Extremities exam: Present: normal inspection. Absent: pedal edema - Neurological Exam Neurological exam: Present: alert, oriented X3, no focal deficits. Absent: facial droop - Skin Skin exam: Present: intact, normal color, warm Oncology - Results Labs: Short CBC 02/22/17 02/22/17 Range/Units 06:19 13:20 WBC 1.5 L 1.9 L (4.3-11.1) K/mcL Hgb 11.9 D 12.8 (11.5-15.4) g/dL Hct 33.3 L 36.0 (35.3-44.9) % Plt Count 75 L 84 L (140-400) K/mcL Neutrophils # 0.8 L (1.6-8.9) K/mcL BMP 02/22/17 06:19 Sodium 131 L Potassium 3.0 L Chloride 100 Carbon Dioxide 24 BUN 9 Creatinine 0.70 Glucose 99 Calcium 7.6 L Liver Function 02/22/17 Range/Units 06:19 Total Bilirubin 0.7 (0.2-1.2) mg/dL AST 76 H (5-34) Units/L ALT 35 (0-55) Units/L Alkaline Phosphatase 85 (38-126) Units/L Albumin 2.8 L (3.5-5.0) g/dL Consult Discharge Plan - Plan Referrals: Caroline Thomas CNP [Primary Care Provider] - <Amando Zazueta - Last Filed: 02/25/17 09:13> Date of Encounter: 02/25/17 - Data of Consult Requesting Physician: William Tillman DO Primary Care Provider: Caroline Thomas CNP - Consult Narrative History of present illness: Ms. Garcia is a 66 year old female admitted with 5 day history of fever 100-103 degrees Fahrenheit. No other family members had fever. Denied travel outside the [place]. Denied working out in the yard are going into [facility]. Oncology - Exam - Constitutional Vitals: Temp Pulse Resp BP Pulse Ox 98.5 F 67 18 143/76 95 02/22/17 14:51 02/22/17 14:51 02/22/17 14:51 02/22/17 14:51 02/22/17 14:51 Exam: GENERAL: Alert and oriented, well appearing. Mental Status: Affect appropriate for circumstances HEENT: Sclerae anicteric. No mucositis or thrush. No other oral or pharyngeal lesions or erythema. Skin: No rashes or petechiae. No evidence of skin malignancy Lymph nodes: No cervical, supraclavicular, axillary, or inguinal adenopathy. Lungs: Air entry normal with normal breath sounds. No rhonchi or wheezing Cardiovascular: Regular rate and rhythm. No skipped beats Abdomen: Soft, nontender; no organomegaly or masses palpable. Extremities: No edema. No calf swelling or tenderness. No joint deformity. Neurologic: Alert, cranial nerves II-XII intact; normal gait; no focal weakness or sensory abnormalities Oncology - Results Labs: Short CBC 02/22/17 02/22/17 Range/Units 06:19 13:20 WBC 1.5 L 1.9 L (4.3-11.1) K/mcL Hgb 11.9 D 12.8 (11.5-15.4) g/dL Hct 33.3 L 36.0 (35.3-44.9) % Plt Count 75 L 84 L (140-400) K/mcL Neutrophils # 0.8 L 1.1 L (1.6-8.9) K/mcL BMP 02/22/17 06:19 Sodium 131 L Potassium 3.0 L Chloride 100 Carbon Dioxide 24 BUN 9 Creatinine 0.70 Glucose 99 Calcium 7.6 L Liver Function 02/22/17 Range/Units 06:19 Total Bilirubin 0.7 (0.2-1.2) mg/dL AST 76 H (5-34) Units/L ALT 35 (0-55) Units/L Alkaline Phosphatase 85 (38-126) Units/L Albumin 2.8 L (3.5-5.0) g/dL - Attending Attestation I examined the patient independently. 1. Neutropenia and thrombocytopenia likely acute 5 day history of fever. Neutropenia and thrombocytopenia. Since 02/21/2017 for counts around 1200. Platelets around 85,000. Do not have previous values to compare. Hemoglobin normal at 12.8 MCV 87 Peripheral smear review by pathology showed thrombocytopenia and neutropenia and lymphopenia. No blasts. Lymphocyte count 500 AST elevated at 76 and ALT normal. Her check viral hepatitis panel. Infectious mononucleosis assay negative. Influenza panel and HIV negative CT abdomen and pelvis with contrast on 02/21/2017 showed 11 mm right liver hemangioma. Otherwise unremarkable. Spleen about 14 cm craniocaudal mildly enlarged Her cytopenias are likely secondary to bone marrow suppression from viral infection/sepsis. Immunological process could be in the differential. No clear indication for bone marrow biopsy at this time. If her counts does not recover within the next 2 weeks. Would consider bone marrow biopsy 2. Hypokalemia. Potassium currently 3 3.subsequently she developed right upper extremity weakness . 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 No associated hemorrhage or edema. Neurology consult Dr. Isai Enriquez obtained. Symptoms atypical for GBS. Because of all the above presentation she was transferred to [facility]
[2017-02-22 13:47] LABS: Platelet Estimate Decreased (Normal)
[2017-02-22 22:36] LABS: INR 1.1; Prothrombin Time 11.9 Seconds (9.4-12.1)
[2017-02-22 22:39] LABS: Activated Partial Thrombo Time 31.9 Seconds (26.0-36.0)
[2017-02-22 22:42] LABS: BUN/Creatinine Ratio 10 (6-26); Blood Urea Nitrogen 7 mg/dL (7-20); Calcium 7.7 mg/dL (8.6-10.8); Carbon Dioxide 20 mEq/L (19-29); Chloride 102 mEq/L (98-109); Glucose 144 mg/dL (70-99); Osmolality,Calculated 271 (280-300); Potassium 3.9 mEq/L (3.5-4.5); Sodium 130 mEq/L (136-145); eGFR For African Americans > 60 (> 60); eGFR For Non-African Americans > 60 (> 60)
--- NOTE | 2017-02-22 22:44 | Event Note ---
Date of Encounter: 02/22/17 Time of Encounter: 22:33 Called to see patient for concerns of sudden onset right hand weakness and numbness of right hand/arm. Weakness started within last hour, numbness started earlier this morning (time unknown). Patient has known intracranial aneurysm and thrombocytopenia. She follows with neurosurgery at [facility]. Thus, she does not qualify for acute stroke alert/TPA. I called [facility] and spoke with neurology (Dr. Lai) who agrees with my orders for STAT head CT and labs. He also recommends MRI tonight and continued work-up. If head CT shows evidence of intracranial bleed, she will need urgent transfer. Otherwise, he agrees with and recommends MRI and stroke work-up. If she has evidence of acute stroke on MRI, he recommends I call back and discuss with him again. Otherwise, he does not recommend urgent transfer. On exam, patient has focal weakness of right hand/arm as well as numbness to her hand. CN2-12 appear intact. No other focal deficits. Will proceed with CT Head, MRI brain and stroke work-up. Given thrombocytopenia , will hold off aspirin until platelets above 100,000. Dr. Lai agrees.
[2017-02-22 23:03] LABS: Magnesium 2.9 mg/dL (1.6-2.6)
[2017-02-22] MEDS: Fluconazole 100 MG TABLET PO SCH (23:21)
[2017-02-23] MEDS: *HR* Morphine 2 MG/ML SYRINGE IVP PRN ×5 (00:34→16:07)
[2017-02-23] MEDS: Acetaminophen 325 MG TABLET PO PRN ×2 (00:58→15:20)
--- NOTE | 2017-02-23 02:39 | Event Note ---
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 Patient neurochecks remain unchanged. I called and spoke with Dr. Lai again at [facility]. Urgent transfer unnecessary, but he recommends CTA head and Neck in the morning. Further guidance after CTA. Will consult neurology to see patient in the morning as well and assist with further guidance and/or transfer, if necessary.
[2017-02-23 03:43] LABS: Hemoglobin 12.2 g/dL (11.5-15.4); Mean Corpuscular Volume 87.8 fL (83.0-100.0); Red Cell Distribution Width 12.6 % (11.5-14.5)
[2017-02-23 03:46] LABS: Hematocrit 34.7 % (35.3-44.9); Immature Platelets 3.1 % (1.1-6.1); Mean Corpuscular HGB Conc 35.2 g/dL (31.6-35.5); Mean Corpuscular Hemoglobin 30.9 pg (28.0-33.3); Monocytes # 0.2 K/mcL (0.0-1.3); Red Blood Count 3.95 M/mcL (3.82-4.97)
[2017-02-23] MEDS: Piperacillin/Tazobactam 3.375 GM in D5% in Water (Mini-Bag+) 100 ML IVPB SCH ×2 (03:54→11:50)
[2017-02-23 04:01] LABS: BUN/Creatinine Ratio 10 (6-26); Blood Urea Nitrogen 7 mg/dL (7-20); Calcium 7.5 mg/dL (8.6-10.8); Carbon Dioxide 22 mEq/L (19-29); Chloride 105 mEq/L (98-109); Glucose 123 mg/dL (70-99); Osmolality,Calculated 273 (280-300); Potassium 3.9 mEq/L (3.5-4.5); Sodium 132 mEq/L (136-145); eGFR For African Americans > 60 (> 60); eGFR For Non-African Americans > 60 (> 60)
[2017-02-23 04:02] LABS: Platelet Count 85 K/mcL (140-400)
[2017-02-23 04:31] LABS: Lymphocytes # 0.6 K/mcL (0.6-4.6); Neutrophils # 1.4 K/mcL (1.6-8.9); Platelet Estimate Decreased (Normal)
[2017-02-23] MEDS: D5% in 0.9% NACL w KCl 20 MEQ/1,000 ML MLS IVC SCH ×2 (06:12→14:46)
[2017-02-23] MEDS: *HR* Promethazine 25 MG/ML VIAL IVP PRN ×2 (07:59→15:20)
[2017-02-23] MEDS: Fluconazole 100 MG TABLET PO SCH (09:02)
--- NOTE | 2017-02-23 10:05 | Internal Med Progress Note ---
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 malignancy WBC 1.9, bandemia on presentation Splenomegaly present on CT, Monospot negative Peripheral smear ordered Consult to hematology oncology Qualifiers: Leukopenia type: unspecified Qualified Code(s): D72.819 - Decreased white blood cell count, unspecified (2) Thrombocytopenia Current Visit: Yes Status: Acute Assessment and plan: 02/23/17 Thrombocytopenia in conjunction with leukopenia, possibly secondary to ITP vs infection Plt stable at 85 Continue to watch 02/22/17 Thrombocytopenia in conjunction with leukopenia, possibly secondary to ITP vs infection vs malignancy Monospot negative Peripheral smear pending Hematology oncology consult ordered (3) Fever Current Visit: Yes Status: Acute Assessment and plan: 02/23/17 Fever of unknown origin, resolved Neutropenia improving, WBC 2.3 46% bands likely 2/2 bone marrow activation CRP 99, CTA of head/neck demonstrated incidental b/l pleural effusions Workup for viral etiology vs autoimmune 02/22/17 Fever of unknown origin, peak 103 Patient has fever with neutropenia and bandemia, infectious source unclear. HIV test pending Nausea and vomiting present with no diarrhea. Abdominal CT did show enlarged spleen with left adnexal mass Right upper quadrant ultrasound negative Patient was initially started on ciprofloxacin and metronidazole, however due to the bandemia we will change the medications to vancomycin and Zosyn Qualifiers: Fever type: unspecified Qualified Code(s): R50.9 - Fever, unspecified (4) Hypokalemia Current Visit: Yes Status: Acute Assessment and plan: Resolved (5) Anemia Current Visit: Yes Status: Acute Assessment and plan: 02/23/17 Acute anemia, unknown source Stable hemoglobin at this time Continue to watch 02/22/17 Acute drop in hemoglobin from 14 to 12.4 Etiology of anemia is unknown, however there is concern for hemolysis Bilirubin found in urine LDH is high, haptoglobin pending Monitor and recheck in the morning Qualifiers: Anemia type: unspecified type Qualified Code(s): D64.9 - Anemia, unspecified (6) Nausea & vomiting Current Visit: Yes Status: Acute Assessment and plan: Nausea and vomiting ongoing Antiemetics ordered We will replace electrolytes and fluids as needed Qualifiers: Vomiting type: unspecified Vomiting Intractability: unspecified Qualified Code(s): R11.2 - Nausea with vomiting, unspecified (7) Right arm weakness Current Visit: Yes Status: Acute Assessment and plan: Right arm numbness and weakness, resolved MRI showed small acute white matter infarct of the corpus callosum risk, no hemorrhage or edema associated. Also demonstrated fairly extensive predominantly subcortical and deep chronic type white matter hypersensitivity suggesting chronic ischemia versus some other form of demyelinating disorder CTA of the head and neck demonstrate unremarkable vasculature of the head and neck Lumbar puncture may be indicated, however the patient has platelet count of 85 Consider autoimmune source for demyelination and possibly fever Neurology consultation (8) DVT prophylaxis Current Visit: Yes Status: Acute - Subjective Interval history: The patient is resting comfortably in bed at time of examination. Overnight she experienced weakness and numbness in her right hand and arm, which led her to drop cups and other things she tried to lift. MRI of the head of her neck demonstrated possible ischemia in the corpus callosum, so the patient had a CTA of the head and neck which turned out to be normal. She said that she is feeling stronger than she was previously and that most of the paresthesias have resolved at this point. 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 She does mention though that this is somewhat unusual and that usually she does not have problems with muscle strength, only sensory input. We questioned further about other sensory deficits she may experience, she mentions that she often gets paresthesias in her lower extremities and throughout her arms as well as on the side of her face. She additionally says that over the past couple of months she has experienced floaters in her eyes, however she denies any flashes of light or sudden changes in any vision. She said she feels like her nerves are firing funny and she does not know how to explain it. - Constitutional Vitals: Temp Pulse Resp BP Pulse Ox 98.8 F 81 16 119/78 95 02/23/17 07:08 02/23/17 07:08 02/23/17 07:08 02/23/17 07:08 02/23/17 07:08 General appearance: Present: mild distress, A&O X 3, pleasant Exam: - Head Head exam: Present: atraumatic, normocephalic - Eye Eye exam: Present: PERRL, conjuntiva pink, sclera anicteric Pupils: Present: PERRL - Neck Neck exam general surgery: Present: lymphadenopathy, tenderness, supple, trachea midline Additional comments: Mild lymphadenopathy noted bilaterally anteriorly. There is tenderness to palpation along anterior and posterior neck - Respiratory Respiratory exam: Present: CTAB. Absent: accessory muscle use, rales, rhonchi, wheezes - Cardiovascular Cardiovascular exam: Present: RRR, +S1, +S2. Absent: diastolic murmur, gallop, rubs, systolic murmur - GI/Abdominal GI/Abdominal exam: Present: normal bowel sounds, soft, tenderness, no peritoneal signs. Absent: distended Additional comments: Tenderness to palpation present in right upper quadrant > left upper quadrant. Leon sign negative - Extremities Exam Extremities exam: Present: warm, radial pulses palpable and symmetrical. Absent : calf tenderness, cyanotic, pedal edema - Neurological Exam Neurological exam: Present: CN II-XII intact, oriented X3. Absent: pronater drift, facial droop, speech deficit Muscle strength 4/5 RUE, 4/5 right continuity clerk strength. 5/5 LUE. - Skin Skin exam: Present: dry, intact Additional comments: There is no purpura or rash. Skin is darkened bronze, patient says this is normal Internal Medicine: Result - Labs CBC & Chem 7: 02/23/17 03:13 02/23/17 03:13 Labs: Short CBC 02/22/17 02/23/17 Range/Units 13:20 03:13 WBC 1.9 L 2.3 L (4.3-11.1) K/mcL Hgb 12.8 12.2 (11.5-15.4) g/dL Hct 36.0 34.7 L (35.3-44.9) % Plt Count 84 L 85 L (140-400) K/mcL Neutrophils # 1.1 L 1.4 L (1.6-8.9) K/mcL BMP 02/22/17 02/23/17 22:11 03:13 Sodium 130 L 132 L Potassium 3.9 3.9 Chloride 102 105 Carbon Dioxide 20 22 BUN 7 7 Creatinine 0.72 0.69 Glucose 144 H 123 H Calcium 7.7 L 7.5 L - ABG Interpretation ABG results: PT/INR, D-dimer PT 11.9 Seconds (9.4-12.1) 02/22/17 22:11 - Impressions Impressions Head CT 02/22/17 21:56 IMPRESSION: No CT evidence of an acute infarct. 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 No associated hemorrhage or edema. Fairly extensive predominantly subcortical and deep chronic type white matter T2 hyperintensity, chronic ischemic versus some other form of demyelination. The findings were sent to the Radiology Results Communication Center at 12:34 am on 02/23/2017to be communicated to a licensed caregiver. D/ / Tanner Lowery MD / Tanner Lowery MD Interpreting Provider: Tanner Lowery MD - VTE Documentation of Mechanical Device: Intermittent pneumatic compression device Consult Discharge Plan - Plan Referrals: Caroline Thomas CNP [Primary Care Provider] - <William Tillman - Last Filed: 02/23/17 16:56> Date of Encounter: 02/23/17 - Assessment and plan (1) Leukopenia Current Visit: Yes Status: Suspected Qualifiers: Leukopenia type: neutropenia Neutropenia type: due to infection Qualified Code(s): D70.3 - Neutropenia due to infection (2) Thrombocytopenia due to enhanced destruction, immune Current Visit: Yes Status: Acute (3) 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 (4) Nausea & vomiting Current Visit: Yes Status: Acute Qualifiers: Vomiting type: bilious vomiting Qualified Code(s): R11.14 - Bilious vomiting (5) Viral illness Current Visit: Yes Status: Suspected (6) Fever Current Visit: Yes Status: Acute Qualifiers: Fever type: due to other condition Qualified Code(s): R50.81 - Fever presenting with conditions classified elsewhere (7) Hypokalemia Current Visit: Yes Status: Resolved (8) Hypertension Current Visit: Yes Status: Chronic Qualifiers: Hypertension type: essential hypertension Qualified Code(s): I10 - Essential (primary) hypertension (9) Right arm weakness Current Visit: Yes Status: Acute (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 Current Visit: Yes Status: Resolved - Constitutional Vitals: Temp Pulse Resp BP Pulse Ox 101.6 F H 85 16 119/58 94 02/23/17 15:00 02/23/17 15:00 02/23/17 15:00 02/23/17 15:00 02/23/17 15:00 Internal Medicine: Result - Labs CBC & Chem 7: 02/23/17 03:13 02/23/17 03:13 Labs: Short CBC 02/23/17 Range/Units 03:13 WBC 2.3 L (4.3-11.1) K/mcL Hgb 12.2 (11.5-15.4) g/dL Hct 34.7 L (35.3-44.9) % Plt Count 85 L (140-400) K/mcL Neutrophils # 1.4 L (1.6-8.9) K/mcL BMP 02/22/17 02/23/17 22:11 03:13 Sodium 130 L 132 L Potassium 3.9 3.9 Chloride 102 105 Carbon Dioxide 20 22 BUN 7 7 Creatinine 0.72 0.69 Glucose 144 H 123 H Calcium 7.7 L 7.5 L - ABG Interpretation ABG results: PT/INR, D-dimer PT 11.9 Seconds (9.4-12.1) 02/22/17 22:11 - Impressions Impressions Head CT 02/22/17 21:56 IMPRESSION: No CT evidence of an acute infarct. 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 No associated hemorrhage or edema. Fairly extensive predominantly subcortical and deep chronic type white matter T2 hyperintensity, chronic ischemic versus some other form of demyelination. The findings were sent to the Radiology Results Communication Center at 12:34 am on 02/23/2017to be communicated to a licensed caregiver. D/ / Tanner Lowery MD / Tanner Lowery MD Interpreting Provider: Tanner Lowery MD Echocardiogram 02/23/17 09:00 Impressions: Mild left ventricular diastolic dysfunction. LVEF 55-60%. Unable to estimate RVSP due to lack of TR jet. No evidence of PFO by color Doppler or agitated saline No significant valvular dysfunction. If clinically indicated, outpatient elective SEN would provide improved diagnostic sensitivity of cardioembolic source Left Ventricular Wall Motion: Rest Echo Findings All wall segments showed normal motion. Findings: Right Ventricle * Normal right ventricular structure and function. Right Atrium * Normal right atrial size. Mitral Valve * Normal mitral valve structure and function. Interatrial Septum * No evidence of PFO by color Doppler or agitated saline Aorta * Normally sized aortic root. Pericardium * The pericardium appears normal. ECG Findings * Normal sinus rhythm. Left Atrium * Mildly dilated left atrium. Study Quality * Technically sub-optimal due to body habitus. Left Ventricle * Mild left ventricular diastolic dysfunction. * LVEF 55-60%. Aortic Valve * No aortic regurgitation. * No aortic stenosis. * Aortic valve not well visualized. Pulmonic Valve * Pulmonic valve is not well visualized. * No pulmonic stenosis. * No pulmonic regurgitation. Tricuspid Valve * Trace tricuspid regurgitation. * No tricuspid stenosis. * Unable to estimate RVSP due to lack of TR jet. IVC * Normal IVC dimensions and inspiratory collapse. Head CTA 02/23/17 09:30 IMPRESSION: 1. No acute intracranial abnormality. Stable head CT. 2. Unremarkable CTA of the neck. 3. Unremarkable CTA of the head. 4. Small bilateral pleural effusions, incompletely seen. D/ / 02/23/2017 10:50:00 Galileo Young MD / [place] Interpreting Provider: Galileo Young MD Neck CTA 02/23/17 09:30 IMPRESSION: 1. No acute intracranial abnormality. Stable head CT. 2. Unremarkable CTA of the neck. 3. Unremarkable CTA of the head. 4. Small bilateral pleural effusions, incompletely seen. D/ / 02/23/2017 10:50:00 Galileo Young MD / [place] Interpreting Provider: Galileo Young MD - Attending Attestation I examined this patient and my medical decision-making was reviewed with the Resident Physician on 02/23/17. I agree with the documented findings, disposition and treatment plan as described except to the extent set forth below. Please see discharge summary of this date.
[2017-02-23] MEDS: Vancomycin 1,250 MG in D5% in Water 250 ML IVPB SCH (11:49)
[2017-02-23 15:03] VITALS: BP 119/58
--- NOTE | 2017-02-23 15:04 | Oncology Inp Progress Note ---
Date of Encounter: 02/23/17 Time of Encounter: 15:15 (1) Leukopenia Current Visit: Yes Status: Suspected Assessment and plan: Ms. Garcia presents with a constellation of symptoms including abdominal pain, fever, chills, night sweats in addition to leukopenia and thrombocytopenia. CT imaging has found splenomegaly and liver appears normal without evidence of cirrhosis. Blood cultures and mononucleosis testing are negative. Clinically, I am most suspicious of infection. Certainly a hematologic malignancy could cause these symptoms although the abdominal pain is certainly unusual. In addition, the WIND ENER[employer] ENGINEER findings would not be explained by a hematologic malignancy. I have recommend sending peripheral blood flow cytometry to look for possible hairy cell leukemia or other lymphoproliferative disorder. I have also requested PNH testing. We will send for paraproteinemia workup, but again the symptoms do not fit the scenario. One could also consider a AIP testing although this would be unusual at this age and given would not explain the cytopenias. She is actively being transferred to [facility]. I sent these labs stat prior to transfer. I think a pro-calcitonin level which shed some light into the possibility of infection. I will defer this to the admitting team. I did offer my card for follow-up if desired. She will a copy. I offered her and her partner words of encouragement. Qualifiers: Leukopenia type: neutropenia Neutropenia type: due to infection Qualified Code(s): D70.3 - Neutropenia due to infection Oncology: Subj Interval history: W[employer] ENER[employer] ENGINEER imaging confirms acute CVA (see below). Neurology is recommended tertiary care transfer which is being actively pursued. She continues to have significant abdominal pain. She had a loose stool this morning. No blood. It was a bit mucousy. She feels confused but is lucid. She has continued fevers, chills and night sweats which have been present since this past Saturday. 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 Her symptoms were quite acute starting on Saturday and are progressing. - Constitutional Vitals: Vital Signs Temp Pulse Resp BP Pulse Ox 02/23/17 07:08 98.8 F 81 16 119/78 95 02/23/17 03:33 98.6 F 72 18 108/68 94 02/22/17 19:05 99.2 F 88 18 139/65 96 Intake and Output 02/23/17 02/23/17 02/23/17 00:59 08:59 16:59 Intake Total 1250 / 1250 1100 / 1100 350 / 350 Output Total 900 / 900 800 / 800 350 / 350 Balance 350 / 350 300 / 300 0 / 0 Intake: IV Fluids 1250 / 1250 1100 / 1100 350 / 350 KCl 20mEq in D5-0.9 NaCl 20 meq 1000 / 1000 1000 / 1000 In 1,000 ml @ 125 mls/hr IVC . Q8H RADHA Rx#:[id number] Zosyn 3.375 GM In Dextrose 5% ( 100 / 100 100 / 100 Minibag+) 100 ML 100 ML @ 25 mls/hr IVPB Q8H RADHA Rx#: [id number] Vancocin 1,250 MG In Dextrose 5 250 / 250 250 / 250 % 250 ML @ 166.67 mls/hr IVPB Q12H RADHA Rx#:[id number] Output: Urine 900 / 900 800 / 800 350 / 350 - Head Head exam: Present: atraumatic, normal inspection, normocephalic - Eye Eye exam: Present: normal appearance, conjuntiva pink, sclera anicteric - ENT ENT exam: Present: mucous membranes moist, normal oropharynx - Neck Neck exam: Present: full ROM, normal inspection - Respiratory Respiratory exam: Present: CTAB - Cardiovascular Cardiovascular exam: Present: RRR - GI/Abdominal GI/Abdominal exam: Present: hypoactive bowel sounds, tenderness - Extremities Exam Extremities exam: Present: full ROM, normal inspection Oncology: Obj Data - Labs CBC & Chem 7: 02/23/17 03:13 02/23/17 03:13 Labs: Laboratory Results - last 24 hr 02/22/17 02/22/17 02/22/17 06:19 22:11 22:11 WBC RBC Hgb Hct MCV MCH MCHC RDW Plt Count MPV Seg Neutrophils % Band Neutrophils % Lymphocytes % Monocytes % Neutrophils # Lymphocytes # Monocytes # Blood Smear Review See Below Platelet Estimate Immature Plt Fraction PT 11.9 INR 1.1 APTT 31.9 Sodium 130 L Potassium 3.9 Chloride 102 Carbon Dioxide 20 BUN 7 Creatinine 0.72 Est GFR ( Amer) > 60 Est GFR (Non-Af Amer) > 60 BUN/Creatinine Ratio 10 Glucose 144 H Calculated Osmolality 271 L Calcium 7.7 L Magnesium 2.9 H Rheumatoid Factor HIV Ag/Ab Combo Qual 02/23/17 02/23/17 02/23/17 03:13 03:13 03:13 WBC 2.3 L RBC 3.95 Hgb 12.2 Hct 34.7 L MCV 87.8 MCH 30.9 MCHC 35.2 RDW 12.6 Plt Count 85 L MPV 10.0 Seg Neutrophils % 16.0 Band Neutrophils % 46.0 H Lymphocytes % 28.0 Monocytes % 10.0 Neutrophils # 1.4 L Lymphocytes # 0.6 Monocytes # 0.2 Blood Smear Review Platelet Estimate Decreased L Immature Plt Fraction 3.1 PT INR APTT Sodium 132 L Potassium 3.9 Chloride 105 Carbon Dioxide 22 BUN 7 Creatinine 0.69 Est GFR ( Amer) > 60 Est GFR (Non-Af Amer) > 60 BUN/Creatinine Ratio 10 Glucose 123 H Calculated Osmolality 273 L Calcium 7.5 L Magnesium Rheumatoid Factor HIV Ag/Ab Combo Qual Nonreactive 02/23/17 03:13 WBC RBC Hgb Hct MCV MCH MCHC RDW Plt Count MPV Seg Neutrophils % Band Neutrophils % Lymphocytes % Monocytes % Neutrophils # Lymphocytes # Monocytes # Blood Smear Review Platelet Estimate Immature Plt Fraction PT INR APTT Sodium Potassium Chloride Carbon Dioxide BUN Creatinine Est GFR ( Amer) Est GFR (Non-Af Amer) BUN/Creatinine Ratio Glucose Calculated Osmolality Calcium Magnesium Rheumatoid Factor < 15 HIV Ag/Ab Combo Qual LDH 487 Peripheral smear: Neutropenia, lymphopenia, minimal anemia and normal morphologies of leukocytes, erythrocytes and platelets. Thrombocytopenia does not appear to be microangiopathic. - Impressions CT OF THE ABDOMEN AND PELVIS WITH CONTRAST 02/22/2017 FINDINGS: Lower Chest: There is minimal bibasilar atelectasis. Organs: A 7 x 11 mm low-density lesion in the right hepatic lobe is probably a cyst or hemangioma. The spleen is enlarged. 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 The pancreas, adrenal glands and kidneys demonstrate no acute findings. 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 GI/Bowel: Small bowel caliber is normal. The appendix is normal. The colon is unremarkable. Pelvis: There is a 3.3 x 4.8 cm cystic lesion in the left adnexa. The patient is status post hysterectomy. The bladder is grossly negative. Peritoneum/Retroperitoneum: There is trace free fluid in the pelvis. There is no adenopathy or mesenteric stranding. Aortic caliber is normal. Bones/Soft Tissues: No acute findings. CT/CT abd pelvis w iv no oral IMPRESSION: 1. 4.8 cm left adnexal cyst. Ultrasound is recommended for further evaluation. 2. Splenomegaly. Head CT 02/22/17 21:56 IMPRESSION: No CT evidence of an acute infarct. 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 No associated hemorrhage or edema. Fairly extensive predominantly subcortical and deep chronic type white matter T2 hyperintensity, chronic ischemic versus some other form of demyelination. The findings were sent to the Radiology Results Communication Center at 12:34 am on 02/23/2017to be communicated to a licensed caregiver. 9 Echocardiogram 02/23/17 09:00 Impressions: Mild left ventricular diastolic dysfunction. LVEF 55-60%. Unable to estimate RVSP due to lack of TR jet. No evidence of PFO by color Doppler or agitated saline No significant valvular dysfunction. If clinically indicated, outpatient elective SEN would provide improved diagnostic sensitivity of cardioembolic source Head CTA 02/23/17 09:30 IMPRESSION: 1. No acute intracranial abnormality. Stable head CT. 2. Unremarkable CTA of the neck. 3. Unremarkable CTA of the head. 4. Small bilateral pleural effusions, incompletely seen. Neck CTA 02/23/17 09:30 IMPRESSION: 1. No acute intracranial abnormality. Stable head CT. 2. Unremarkable CTA of the neck. 3. Unremarkable CTA of the head. 4. Small bilateral pleural effusions, incompletely seen. - Imaging and cardiology MRI - head Additional comments: MRI OF THE BRAIN WITHOUT CONTRAST 02/23/2017 12:24 am TECHNIQUE: Multiplanar multisequence MRI of the brain was performed without the administration of intravenous contrast. COMPARISON: None. HISTORY: ORDERING SYSTEM PROVIDED HISTORY: acute onset right handed wekaness; known intracra FINDINGS: INTRACRANIAL STRUCTURES/VENTRICLES: There is a small acute infarct indicated by focal diffusion restriction in the splenium of corpus callosum. No mass effect or midline shift. No abnormal extra-axial fluid collection. The ventricles and sulci are normal in size and configuration. The sellar/suprasellar regions appear unremarkable. Areas of T2 FLAIR hyperintensity are seen in the periventricular and subcortical white matter, which are nonspecific, but may represent chronic microvascular ischemic change. The normal signal voids within the major intracranial vessels appear maintained. ORBITS: The visualized portion of the orbits demonstrate no acute abnormality. SINUSES: The visualized paranasal sinuses and mastoid air cells are well aerated. BONES/SOFT TISSUES: The bone marrow signal intensity appears normal. The craniocervical junction is normal in appearance. 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 No associated hemorrhage or edema. Fairly extensive predominantly subcortical and deep chronic type white matter T2 hyperintensity, chronic ischemic versus some other form of demyelination. - ABG Interpretation ABG results: PT/INR, D-dimer PT 11.9 Seconds (9.4-12.1) 02/22/17 22:11 Consult Discharge Plan - Plan Referrals: Caroline Thomas CNP [Primary Care Provider] -
--- NOTE | 2017-02-23 15:23 | Neurology - Consult Note ---
Date of Encounter: 02/23/17 Time of Encounter: 10:55 Assessment and Plan (1) Right arm weakness Current Visit: Yes Status: Acute This patient was seen to have a generalized symptoms including abdominal symptoms and weakness as well as neutropenia and along with that she also has right upper extremity weakness which is relatively new with evidence of some ischemia in the carpus callosum along with multiple significant white matter changes throughout the whole brain. At this time seems to be that her symptoms are quite unusual due to the fact that even if it is indeed related to the ischemia but does not like a typical stroke or stroke presentation especially the MRI findings. CT angiogram did not show any evidence of stenosis and at the same time no evidence of any vasculitic changes. With her ex-history of GBS certainly that is a constant but at this time the present position does not seem to be typical of GBS. At the same time the neutropenia and other abdominal symptoms cannot be explained from her MRI findings even if it is a acute demyelinating condition neutropenia cannot be explained on the basis of it. The next step is to proceed with a spinal tap but as her platelet count is quite slow probably have to wait until her predicted returns more than 100,000 on the other hand the chances that it may not be conclusive (2) White matter disease, unspecified Current Visit: Yes Status: Acute Significant white matter changes noted throughout the whole brain but according to the patient she was told that she did have these white matter changes for quite some time at this time I really doubt that these white matter changes are the reason for her current symptoms particularly there was no evidence of any acute lesions (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 Current Visit: Yes Status: Acute Kylee has residual paresthesias from her history of GBS but at the moment I did not see any generalized weakness or any other clinical sign to be suggestive of recurrence of her symptoms (4) Thrombocytopenia Current Visit: Yes Status: Acute She is getting workup for other conditions particularly the reason for these thrombocytopenia as well as abdominal symptoms I suspect she may have some immune mediated response causing this are overall symptoms and condition as you have already excluded the vascular causes and at the same time less likely in the GBS or peripheral neuropathy. At this time I would suggest that patient may need to be evaluated at a tertiary care center with a multidisciplinary team of immunology hematology as well as neurology for a confirmed diagnosis. discussed with primary team and patient History of Present Illness HPI: Ms. Garcia is a 66 year old female admitted earlier with chief complaint of abdominal pain. which she was experiencing along with fever for one week, During this time, she has not had a bowel movement. she also had fever, chills, nausea, vomiting, and upper abdominal pain in both right upper quadrant and left upper quadrant. while she is in Patient Overnight she experienced weakness and numbness in her right hand and arm, which led her to drop things from it, because of these new symptoms she had MRI of the head that showed possible ischemia in the corpus callosum, along with significant chronic white matter changes throughout the whole pain. Because of this unusual presentation she had CTA of the head and neck which turned out to be normal. At this time she feels stronger and most of the paresthesias have resolved at this point. Patient also mentioned that she has a history of Guillain-[place] syndrome approximately 20 years ago when she had similar but more drastic presentation. Though she has recovered well and continued to walk without any help but had symptoms of numbness paresthesias in her arms and feet off and on usually those symptoms are worse when she is sick with any other condition she was on Lyrica as well as Soma for quite some time most recently she has not been taking any of those medication. Most of her symptoms are predominantly sensory and she did not have much focal motor weakness . She also mentioned that her usual symptoms are paresthesias in her lower extremities and throughout her arms as well as on the side of her face. She additionally says that over the past couple of months she has experienced floaters in her eyes, however she denies any flashes of light or sudden changes in any vision. She has serial MRIs of her brain in the past and was told that she has white matter changes but never been diagnosed with MS or any other condition she denies any history of stroke recently she has been having all these other symptoms besides these neurological symptoms particularly abdominal symptoms Past Med Surg Social Fam HX - Past Medical History Medical history: aortic aneurysm, arthritis, hypertension, thyroid disease Psychiatric history: depression - Past Surgical History Surgical History: knee replacement, thyroidectomy - Social History Smoking Status: Never smoker Smokeless Tobacco Status: No Alcohol use: occasionally (2-3 glasses of wine per week) Drug use: none - Family History Mother Living Status: Hx Family Cancer: Yes (head and neck) Father Living Status: Hx Family Cancer: Yes (prostate) Brother Hx Family Cancer: Yes (colon) Medications and Allergies Aspirin Enteric Coated [Aspirin EC] 81 mg PO DAILY 02/22/17 [History] Esomeprazole Magnesium [Nexium] 40 mg PO BID 02/22/17 [History] Levothyroxine [Synthroid] 150 mcg PO QAM 02/22/17 [History] Metoprolol XL (24 HR) Succ [Toprol Xl] 50 mg PO DAILY 02/22/17 [History] Sertraline [Zoloft] 25 mg PO DAILY 02/22/17 [History] Valsartan/Hydrochlorothiazide [Diovan Hct 320-25 mg Tablet] 1 each PO DAILY 11/03 [History] amLODIPine [Norvasc] 5 mg PO DAILY 02/22/17 [History] 3 Allergy/AdvReac Type Severity Reaction Status Date / Time pentazocine [From Talwin] AdvReac Hives Verified 03/08/16 09:09 Sulfa (Sulfonamide AdvReac Headache Verified 03/08/16 09:09 Antibiotics) All Systems: A 10-system review of systems was performed and is negative for pertinent findings except as documented above in the HPI. Physical Examination - Vital Signs Vital Signs: Initial Vital Signs Temp Pulse Resp BP Pulse Ox 99 F 104 20 118/74 94 02/21/17 21:11 02/21/17 21:11 02/21/17 21:11 02/21/17 21:11 02/21/17 21:11 - Constitutional General appearance: comfortable - Neurologic Sensorimotor examination: intact Motor examination - right side: 4/5: biceps, triceps, wrist flexion, wrist extension, water tender, 5/5: deltoids, hip flexors, tibialis Anterior, quadriceps, toe extension (EHL), plantarflexion Motor examination - left side: 5/5: deltoids, biceps, triceps, wrist flexion, wrist extension, hip flexors, water tender, quadriceps, tibialis Anterior, toe extension (EHL), plantarflexion Detailed sensory examination: intact Reflexes: Biceps: 0, Triceps: 0, Brachioradialis: 0, Patella: 0, Achilles: 0 Mental Status Examination: awake, alert, oriented to person, oriented to place, oriented to time, follows commands appropriately, answers questions appropriately, no agnosia, no aphasia, follows simple commands, localizes noxious stimulation Cranial nerve examination: PERRL, EOMI, visual ndiaye intact, no facial asymmetry is present, no dysarthria Ataxia: right upper extremity Results - Laboratory Findings CBC and BMP: 02/23/17 03:13 02/23/17 03:13 Abnormal lab findings: Abnormal lab results WBC 2.3 K/mcL (4.3-11.1) L 02/23/17 03:13 Hct 34.7 % (35.3-44.9) L 02/23/17 03:13 Plt Count 85 K/mcL (140-400) L 02/23/17 03:13 Band Neutrophils % 46.0 % (0-4) H 02/23/17 03:13 Myelocytes % 2.0 % (0) H 02/21/17 22:52 Neutrophils # 1.4 K/mcL (1.6-8.9) L 02/23/17 03:13 Nucleated RBCs/100 WBC 1.4 /100 WBC (0) H 02/22/17 06:19 Reactive Lymphocytes Present (Not Present) A 02/22/17 06:19 Platelet Estimate Decreased (Normal) L 02/23/17 03:13 Sodium 132 mEq/L (136-145) L 02/23/17 03:13 Glucose 123 mg/dL (70-99) H 02/23/17 03:13 POC Glucose 99 (58-89) H 02/22/17 05:16 Calculated Osmolality 273 (280-300) L 02/23/17 03:13 Calcium 7.5 mg/dL (8.6-10.8) L 02/23/17 03:13 Magnesium 2.9 mg/dL (1.6-2.6) H 02/22/17 22:11 AST 76 Units/L (5-34) H 02/22/17 06:19 Lactate Dehydrogenase 487 Units/L (159-327) H 02/22/17 10:56 C-Reactive Protein 99 mg/L (Less than 5) H 02/21/17 23:59 Serum Total Protein 5.1 g/dL (6.0-8.3) L 02/22/17 06:19 Albumin 2.8 g/dL (3.5-5.0) L 02/22/17 06:19 Globulin 2.3 g/dL (2.4-3.5) L 02/22/17 06:19 Urine Clarity Cloudy (Clear) A 02/21/17 23:20 Ur Specific [place] 1.027 (1.010-1.025) H 02/21/17 23:20 Urine Protein 100 mg/dL (Neg-Trace) H 02/21/17 23:20 Urine Ketones 80 mg/dL (Negative) H 02/21/17 23:20 Urine Blood Moderate (Negative) H 02/21/17 23:20 Urine Bilirubin Moderate (Negative) H 02/21/17 23:20 Urine Microscopic RBC 3-5 per hpf (0-3) H 02/21/17 23:20 Urine Microscopic WBC 3-5 per hpf (0-3) H 02/21/17 23:20 Ur Squamous Epith Cells Many per lpf (None-Few) H 02/21/17 23:20 Urine Mucus Many (Few) H 02/21/17 23:20 Urine Yeast Many per hpf (None Seen) H 02/21/17 23:20 Consult Discharge Plan - Plan Referrals: Caroline Thomas, KETURAH [Primary Care Provider] -
[2017-02-23] MEDS ORDERED: Aspirin Enteric Coated 81 MG Tablet PO SCH (15:45)
[2017-02-23] MEDS ORDERED: *HR* Promethazine 25 MG/ML VIAL IVP ONE (16:09)
[2017-02-23] MEDS ORDERED: Levofloxacin 750 MG/150 ML 750 MG/150 ML BAG IVPB ONE (16:10)
[2017-02-23] MEDS ORDERED: Acetaminophen IV 1,000 MG/100 ML INFUS..BTL IVPB ONE (16:10)
--- NOTE | 2017-02-23 16:14 | Discharge Summary ---
Date of Encounter: 02/23/17 Time of Encounter: 16:12 - Discharge Diagnosis (1) Leukopenia Priority: Primary Status: Suspected Comments: Neutropenia suspected due to viral illness versus immunologic process. Will be evaluated at [facility]. Qualifiers: Leukopenia type: neutropenia Neutropenia type: due to infection Qualified Code(s): D70.3 - Neutropenia due to infection (2) Thrombocytopenia due to enhanced destruction, immune Priority: Primary Status: Acute (3) Corpus callosum white matter abnormalities present on MRI Priority: Secondary Status: Chronic (4) Nausea & vomiting Priority: Secondary Status: Acute Qualifiers: Vomiting type: bilious vomiting Qualified Code(s): R11.14 - Bilious vomiting (5) Viral illness Priority: Secondary Status: Suspected (6) Fever Priority: Secondary Status: Acute Qualifiers: Fever type: due to other condition Qualified Code(s): R50.81 - Fever presenting with conditions classified elsewhere (7) Hypokalemia Priority: Secondary Status: Resolved (8) Hypertension Priority: Secondary Status: Chronic Qualifiers: Hypertension type: essential hypertension Qualified Code(s): I10 - Essential (primary) hypertension (9) Right arm weakness Priority: Secondary Status: Acute (10) Hypothyroid Priority: Secondary Status: Chronic Qualifiers: Hypothyroidism type: acquired Qualified Code(s): E03.9 - Hypothyroidism, unspecified (11) History of Guillain-[place] syndrome Priority: Secondary Status: Resolved - Discharge Medications Home Medications: Aspirin Enteric Coated [Aspirin EC] 81 mg PO DAILY 02/22/17 [History] Esomeprazole Magnesium [Nexium] 40 mg PO BID 02/22/17 [History] Levothyroxine [Synthroid] 150 mcg PO QAM 02/22/17 [History] Metoprolol XL (24 HR) Succ [Toprol Xl] 50 mg PO DAILY 02/22/17 [History] Sertraline [Zoloft] 25 mg PO DAILY 02/22/17 [History] Acetaminophen [Tylenol] 650 mg PO Q6HR PRN tablet 02/23/17 [Rx] Aspirin Enteric Coated [Aspirin EC] 81 mg PO DAILY tablet. 02/23/17 [Rx] Morphine [Morphine Sulfate] 2 mg IVP Q3H PRN syringe 02/23/17 [Rx] Promethazine [Phenergan] 12.5 mg IVP Q6HR PRN vial 02/23/17 [Rx] Allergies/Adverse Reactions: 3 Allergy/AdvReac Type Severity Reaction Status Date / Time pentazocine [From Talwin] AdvReac Hives Verified 03/08/16 09:09 Sulfa (Sulfonamide AdvReac Headache Verified 03/08/16 09:09 Antibiotics) Procedures/tests Complete & Pending: Procedures Performed prior 72 hours Category Date Time Status CT angio neck [CT] Routine Cat Scan 02/23/17 09:[address] head/brain wo con [CT] Stat Cat Scan 02/22/17 21:56 Completed CTA Head [CT angio head] [CT] Routine Cat Scan 02/23/17 09:30 Completed MR head/brain wo con [MR] Stat MRI 02/22/17 22:30 Completed EV carotid duplex imaging BI Routine Y 02/23/17 09:00 Completed EV echocardiogram Routine Y 02/23/17 09:00 Completed Date of admission: 02/22/17 05:51 Primary care physician: Caroline Thomas CNP Consults: 02/22/17 09:08 Consult to Oncology [CONS] Stat Consulting Provider: [facility] Reason for Consult: Leukopenia w/ Fever Time Notified: 09:09 Call Completed: Yes 02/23/17 07:31 Consult to Neurology [CONS] Routine Consulting Provider: Neurology [facility] Reason for Consult: Abnormal MRI/Infarct Time Notified: 07:34 Call Completed: Yes Discharging clinician: William Tillman Anticipated date of discharge: 02/23/17 - Patient Status Disposition: Transfer Short-Term Hosp Condition: Fair Functional capacity at discharge: independent ambulation Overall status at discharge: patient is not back to baseline - Discharge Instructions Follow Up With: Caroline Thomas CNP [Primary Care Provider] - - Diet and Activity Activity: increase activity as tolerated Diet: low salt diet Hospital course: Ms. Garcia is a 66 year old female with hx of hypothyroidism, HTN presented to ED with 1 week hx of fever and 2 day hx of abdominal pain, nausea and vomiting. She had been evaluated at an Urgent Care and due to concern for bowel obstruction she was sent to ED. In ED she had CT abd/pelvis which showed only complex ovarian cyst. CXR negative. WBC was low and ANC was 1300. Plt 85. This is new for patient. She was started on abx to cover GI franchesca. Concern was this was viral process. She remained afebrile and was evaluated by hematology. Plan was for outpatient work up if leukopenia persists. During the night of 02/22 she was noted to have RUE weakness. She had been noticing parasthesias during the day and these were different than usual for her. CT negative for bleed. MRI showed very small acute ischemic area in splenium of corpus callosum and multiple areas of white matter changes. CTA of head and neck negative. WBC on 02/23 showed 46% bands and ANC of 1400. Platelets remained 85. She remained on broad spectrum abx of Zosyn and Vanc (started on 02/22 afternoon). One dose of Levaquin IV given. She had recurrent fever of 101.6 on afternoon of 02/23 and she remained achy and nauseous with vomiting. She was evaluated by neurology and there was concern for immunologic process (work up here not back yet) or infectious issue. It was felt she should be transferred to tertiary center. Patient and family agreeable to plan. She has been accepted at [facility] on the service of Dr. Wright. - Time Spent with Patient Total time spent providing and/or coordinating discharge services: 42min - Constitutional Vitals: Temp Pulse Resp BP Pulse Ox 101.6 F H 85 16 119/58 94 02/23/17 15:00 02/23/17 15:00 02/23/17 15:00 02/23/17 15:00 02/23/17 15:00 General appearance: Present: A&O X 3, pleasant Exam: Moderate distress due to nausea and discomfort. - Head Head exam: Present: normocephalic - Eye Eye exam: Present: EOMI, conjuntiva pink - ENT ENT exam: Present: mucous membranes dry - Respiratory Respiratory exam: Absent: rhonchi, wheezes - Cardiovascular Cardiovascular exam: Present: RRR. Absent: tachycardia Additional comments: Regular - GI/Abdominal GI/Abdominal exam: Present: soft, tenderness - Extremities Exam Extremities exam: Present: warm. Absent: tenderness - Neurological Exam Neurological exam: Present: alert, oriented X3 - Skin Skin exam: Present: warm. Absent: rash - VTE Documentation of Mechanical Device: Intermittent pneumatic compression device
[2017-02-23 16:17] LABS: Adenovirus Not Detected (Not Detect); Bordetella Pertussis Not Detected (Not Detect); Chlamydophila pneumoniae Not Detected (Not Detect); Coronavirus 229E Not Detected (Not Detect); Coronavirus HKU1 Not Detected (Not Detect); Coronavirus NL63 Not Detected (Not Detect); Coronavirus OC43 Not Detected (Not Detect); Human Metapneumovirus Not Detected (Not Detect); Human Rhinovirus/Enterovirus Not Detected (Not Detect); Influenza A Subtype 2009 H1 Not Detected (Not Detect); Influenza A Untypeable Not Detected (Not Detect); Influenza B Not Detected (Not Detect); Mycoplasma pneumoniae Not Detected (Not Detect); Parainfluenza Virus 1 Not Detected (Not Detect); Parainfluenza Virus 2 Not Detected (Not Detect); Parainfluenza Virus 3 Not Detected (Not Detect); Parainfluenza Virus 4 Not Detected (Not Detect); Respiratory Syncytial Virus Not Detected (Not Detect)
[2017-02-23] MEDS ORDERED: Pantoprazole 40 MG VIAL IVP ONE (16:51)
[2017-02-23] MEDS ORDERED: Levothyroxine Sodium 100 MCG VIAL IVP ONE (17:00)
[2017-02-23] MEDS ORDERED: Aminoglycoside Consult 1 EACH MC ONE (17:41)
--- NOTE | 2017-02-24 16:01 | Carotid Imaging Report ---
Carotid Duplex Patient Name:Anastacia Garcia Order Number:[id number] Procedure Date:02/23/2017 Date:1950ge:66 yrs Gender:Female Lt BP:119 / 78 mmHg Location: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 The left internal carotid artery has a 40-59% stenosis. Recommendations: Risk factor reduction. Follow-up carotid duplex in 1 year. Findings Carotid Duplex: Right: The right proximal common carotid artery has a PSV of 101 cm/s and a EDV of 19 cm/s. The right mid common carotid artery has a PSV of 107 cm/s and a EDV of 22 cm/s. The right distal common carotid artery has a PSV of 107 cm/s and a EDV of 28 cm/s. The right bifurcation has a PSV of 106 cm/s and a EDV of 25 cm/s. There is smooth heterogeneous plaque. The right proximal internal carotid artery has a PSV of 98 cm/s and a EDV of 19 cm/s. There is smooth heterogeneous plaque. The right mid internal carotid artery has a PSV of 92 cm/s and a EDV of 28 cm/s. The right distal internal carotid artery has a PSV of 105 cm/s and a EDV of 21 cm/s. The right eca has a PSV of 103 cm/s and a EDV of 19 cm/s. The right vertebral artery has a PSV of 48 cm/s and a EDV of 15 cm/s. Left: The left proximal common carotid artery has a PSV of 108 cm/s and a EDV of 33 cm/s. The left mid common carotid artery has a PSV of 97 cm/s and a EDV of 31 cm/s. The left distal common carotid artery has a PSV of 98 cm/s and a EDV of 26 cm/s. The left bifurcation has a PSV of 94 cm/s and a EDV of 30 cm/s. There is smooth heterogeneous plaque. The left proximal internal carotid artery has a PSV of 96 cm/s and a EDV of 20 cm/s. There is smooth heterogeneous plaque. There is 40-59% stenosis in the left mid internal carotid artery with a PSV of 139 cm/s and a EDV of 39 cm/s. There is smooth heterogeneous plaque. There is 40-59% stenosis in the left distal internal carotid artery with a PSV of 144 cm/s and a EDV of 35 cm/s. There is smooth heterogeneous plaque. The left eca has a PSV of 115 cm/s and a EDV of 24 cm/s. The left vertebral artery has a PSV of 97 cm/s and a EDV of 20 cm/s. Carotid Results Right PSV EDV Assessment Proximal CCA 101 19 Mid CCA 107 22 Distal CCA 107 28 Bifurcation 106 25 Non Stenotic Plaque Proximal ICA 98 19 Non Stenotic Plaque Mid ICA 92 28 Distal ICA 105 21 ECA 103 19 Vertebral Artery 48 15 Left PSV EDV Assessment Proximal CCA 108 33 Mid CCA 97 31 Distal CCA 98 26 Bifurcation 94 30 Non Stenotic Plaque Proximal ICA 96 20 Non Stenotic Plaque Mid ICA 139 39 40-59% stenosis Distal ICA 144 35 40-59% stenosis ECA 115 24 Vertebral Artery 97 20 Ratio's Right ICA/CCA Ratio: 0.98 Left ICA/CCA Ratio: 1.48 Updated by Abdulkadir Law MD on 02/24/2017 3:53:31 PM electronically signed on 02/24/2017 3:53:46 PM with status of Final
[2017-02-26 06:39] LABS: ANA IgG by ELISA NONE DETECTED (None Detected)
[2017-02-27 08:59] LABS: Complement Component 3 96 mg/dL (88-201)
[2017-02-27 09:00] LABS: Complement Component 4 33 mg/dL (10-40)
[2017-02-27 13:27] LABS: Kappa Qnt Free Light Chains 1.47 mg/dL (0.33-1.94); Lambda Qnt Free Light Chains 1.11 mg/dL (0.57-2.63)
[2017-02-28 05:06] LABS: Alpha 2 Globulin (PEP) 0.63 g/dL (0.48-1.05); Beta Globulin (PEP) 0.52 g/dL (0.48-1.10)
[2017-02-28 15:32] LABS: Myeloperoxidase Ab 2 AU/mL (0-19); Serine Protease-3 Antibody 0 AU/mL (0-19)
[2017-03-01 09:34] LABS: IFE Reflexed IFE Done; Immunoglobulin G 576 mg/dL (768-1632)
[2017-03-01 09:35] LABS: Immunoglobulin A 71 mg/dL (68-408); Immunoglobulin M 100 mg/dL (35-263)
== END 2017-02-23 17:42 | disposition short-term general hospital (02) | DRG 809 ==
LOC: EMEROO 20:51 → 3ANU 20:51 → 3NENU 02-22 02:08 → SUATTDRO 02-22 05:51
PROVIDERS: ADMIT Family Medicine; ATTEND Internal Medicine

== ENCOUNTER 2018-08-11 14:35 | Observation (INO) ==
[2018-08-11] MEDS ORDERED: ceFAZolin 2,000 MG in Water for inj. (sterile) 20 ML IVP ONE (14:58)
--- NOTE | 2018-08-11 14:59 | Discharge Summary ---
Outpatient Proc Discharge Plan - Plan Additional Instructions: Okay to move elbow Okay to squeeze ball Do not move shoulder Do not remove dressing Okay to shower in 24 hours Home Medications: Aspirin 81 mg PO DAILY 09/26/17 [History] Duloxetine HCl [Cymbalta] 60 mg PO DAILY 09/26/17 [History] Levothyroxine [Synthroid] 25 mcg PO QAM 09/26/17 [History] Metoprolol XL (24 HR) Succ [Toprol Xl] 50 mg PO DAILY 09/26/17 [History] Pregabalin [Lyrica] 50 mg PO BID 09/26/17 [History] amLODIPine [Norvasc] 5 mg PO DAILY 09/26/17 [History] Cholecalciferol (D-3) [Vitamin D] 5,000 unit PO DAILY 02/17/18 [History] Tizanidine HCl 2 mg PO HS PRN 02/17/18 [History] Ondansetron ODT [Zofran ODT] 4 mg SL Q6HR PRN #10 tab.rapdis 08/01/18 [Rx]
--- NOTE | 2018-08-11 14:59 | History & Physical Report ---
Date of Encounter: 08/11/18 Time of Encounter: 14:58 24 Hour HP Update - Instructions Instructions: If the History and Physical is less than 30 days old and was completed prior to A.M. admission and or procedure and has NOT been updated on calendar day of procedure please complete this update prior to performing procedure. - Update Patient reports changes in Medical Condition: No Changes in examination, assessment, or condition: No Changes in Medication: No Preop tests/diagnostics Reviewed: Yes Surgery Remains Indicated: Yes Consent for Planned Operative Procedure(s) Verified: Yes - Pre-Operative Checklist Preoperative Checklist Indicated: No Prophylactic Antibiotic Ordered: Yes Is VTE Prophylaxis Indicated?: Yes
[2018-08-11] MEDS ORDERED: Ringers Solution, Lactated 1,000 ML IVC SCH ×2 (15:00→22:13)
--- NOTE | 2018-08-11 15:37 | Anesthesia Evaluation PreOp ---
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), Guillian-[place] Syndrome 35 yrs ago) Other Medical History: Thyroid Anesthesia History: No Prior Anesthetic Complications, Past Anesthesia Alcohol Use: occasionally Drug use: none Medications and Allergies Levothyroxine [Synthroid] 25 mcg PO QAM 09/26/17 [History] Metoprolol XL (24 HR) Succ [Toprol Xl] 50 mg PO DAILY 09/26/17 [History] Pregabalin [Lyrica] 50 mg PO BID 09/26/17 [History] amLODIPine [Norvasc] 5 mg PO DAILY 09/26/17 [History] Tizanidine HCl 2 mg PO HS PRN 02/17/18 [History] Desvenlafaxine [Desvenlafaxine ER] 50 mg PO DAILY 08/11/18 [History] Oxycodone HCl/Acetaminophen [Percocet 10-325 mg Tablet] 1 each PO Q8HR PRN 08/11/18 [History] Allergy/AdvReac Type Severity Reaction Status Date / Time pentazocine [From Jazmin] Allergy Severe Unresponsiv Verified 08/01/18 06:14 e Sulfa (Sulfonamide AdvReac Vomiting Verified 08/01/18 06:14 Antibiotics) - Meds/Allergy Pre-op Review Medications Reviewed: Yes Allergies Reviewed: Yes Beta Blockers on Current Med List: Yes If Beta Blockers taken, Date/Time (Last Dose taken): 08/11/2018 at 0630 Anesthesia Results - Labs Laboratory Tests 02/22/17 08/15/17 08/15/17 22:11 02:55 02:55 WBC 11.9 H Hgb Hct 44.4 Plt Count 232 PT 11.9 INR 1.1 APTT 31.9 Sodium 137 Potassium BUN 16 Creatinine 0.77 09/24/17 09/24/17 12:25 12:25 WBC Hgb 14.4 Hct Plt Count PT INR APTT Sodium Potassium 3.4 L BUN Creatinine - Imaging EKG: report reviewed (02/19/2018 SINUS RHYTHM wnl) Additional studies: 02/23/2017 Echo Impressions: Mild left ventricular diastolic dysfunction. LVEF 55-60%. Unable to estimate RVSP due to lack of TR jet. No evidence of PFO by color Doppler or agitated saline No significant valvular dysfunction. If clinically indicated, outpatient elective SEN would provide improved diagnostic sensitivity of cardioembolic source Anesthesia Exam O2 Sat Height 1.68 m Height 1.68 m Weight 92.986 kg Weight 92.986 kg O2 Sat by Pulse Oximetry 96 Vital Signs Temp Pulse Resp BP Pulse Ox 97.6 F 71 18 123/70 96 08/11/18 15:22 08/11/18 15:22 08/11/18 15:22 08/11/18 15:22 08/11/18 15:22 Height: 5'6'' Weight: 205 lbs NPO (# of Hours): 8 Pain Scale: 6 (right arm) Pain Scale Used: Numeric (1 - 10) - HEENT Pupil (Motor): EOMI Mallampati: II Teeth: Normal, Missing Denture Type: Upper: Partial, Lower: Partial Oral Opening: Greater than 3 - 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
[2018-08-11] MEDS ORDERED: *HR* PHENYLEPHRINE 1,000 MCG/10 ML SYRINGE IVP ONE (15:54)
[2018-08-11 16:01] LABS: Basophils # 0.1 K/mcL (0.0-0.2); Basophils % 0.6 %; Eosinophils # 0.1 K/mcL (0.0-0.6); Eosinophils % 1.5 %; Hematocrit 35.2 % (35.3-44.9); Hemoglobin 11.6 g/dL (11.5-15.4); Immature Granulocytes % 0.5 % (0-4); Lymphocytes # 1.9 K/mcL (0.6-4.6); Mean Corpuscular Hemoglobin 30.9 pg (28.0-33.3); Mean Corpuscular Volume 93.6 fL (83.0-100.0); Mean Platelet Volume 9.1 fL (9.4-12.4); Monocytes # 0.6 K/mcL (0.0-1.3); Monocytes % 8.1 %; Neutrophils # 5.1 K/mcL (1.6-8.9); Platelet Count 264 K/mcL (140-400); Red Blood Count 3.76 M/mcL (3.82-4.97); Red Cell Distribution Width 14.3 % (11.5-14.5); Segmented Neutrophils % 65.3 %
[2018-08-11] MEDS ORDERED: Scopolamine Patch 1.5 MG PATCH.TD72 TD ONE (16:04)
[2018-08-11] MEDS ORDERED: *HR* OxyCODONE Immed Rel 5 MG TABLET PO PRN ×2 (16:05→22:13)
[2018-08-11] MEDS ORDERED: *HR* HYDROmorphone (PF) 1 MG/ML SYRINGE IVP PRN (16:05)
[2018-08-11] MEDS ORDERED: *HR* FentaNYL (PF) 100 MCG/2 ML VIAL ONE (16:09)
[2018-08-11] MEDS ORDERED: *HR* Propofol 200 MG/20 ML VIAL IVP ONE (16:09)
[2018-08-11] MEDS ORDERED: *HR* Midazolam HCl 2 MG/2 ML VIAL ONE (16:09)
[2018-08-11] MEDS ORDERED: Lidocaine -MPF 2% 2 ML VIAL ONE (16:13)
[2018-08-11] MEDS ORDERED: Ondansetron 4 MG/2 ML VIAL ONE (16:13)
[2018-08-11] MEDS ORDERED: Dexamethasone 4 MG/ML VIAL ONE (16:13)
[2018-08-11] MEDS ORDERED: *HR* Succinylcholine 200 MG/10 ML VIAL IVP ONE (16:13)
[2018-08-11 16:21] LABS: BUN/Creatinine Ratio 28 (6-26); Blood Urea Nitrogen 18 mg/dL (8-23); Carbon Dioxide 27 mEq/L (23-29); Chloride 104 mEq/L (98-107); Glucose 98 mg/dL (70-105); Osmolality,Calculated 292 (280-300); Potassium 3.8 mEq/L (3.5-5.1); Sodium 140 mEq/L (136-145); eGFR For Non-African Americans > 60 (> 60)
[2018-08-11] MEDS ORDERED: *HR* HYDROMORPHONE 2 MG/ML VIAL ONE (18:19)
--- NOTE | 2018-08-11 18:19 | Orthopedic Operative Note ---
Date of procedure: 08/11/18 Pre-op diagnosis: DisPlaced right proximal humerus fracture Post-op diagnosis: same Procedure: Procedure: Right open reduction internal fixation proximal third humerus fracture Estimated blood loss: 200 cc Hardware: Griffin 7-hole right proximal humeral locking plate, 10 cortical and locking screws 3 Arthrex cerclage fiber tapes Procedural Notes: Long oblique proximal third humerus Operative procedure: The patient was brought to the operating room and placed on the operating room table. After general anesthesia was administered the operative arm was prepped and draped in the sterile surgical fashion The patient received IV antibiotics prior to skin incision. A standard extended deltopectoral approach was made to the humerus, the incision is made to the skin and subcutaneous tissue. Hemostasis was obtained with Bovie cautery. Using careful blunt dissection the deltopectoral interval was developed, exposing the fracture site. Fracture was reduced and held in place with bone holding forceps. 3 Arthrex cerclage fiber tapes were passed individually and secured individually these were passed subperiosteal under direct vision gaining preliminary fixation. Fluoroscopic evaluation confirmed good stable reduction. Using fluoroscopic assistance a Katherine 7-hole right proximal humeral locking plate was approximated to the anterior lateral surface was fixed distally in compression fixation was completed with a combination of compression and locking screws. Position of the hardware as well as fracture reduction found to be acceptable on fluoroscopic exam evaluation. The wound was irrigated the deltopectoral closed with a running #1 PDS suture case tissues irrigated and closed deep with 0 PDS suture superficially with 0 PDS suture skin was closed with skin mel patient was sterile dressing and brace. The patient was extubated, and then transferred to the recovery room in stable condition. Anesthesia: GETA Surgeon: Chaka Loving Was there an training and development assistant present: No Estimated blood loss (cc): 200 Condition: stable Disposition: PACU
[2018-08-11] MEDS ORDERED: Acetaminophen IV 1,000 MG/100 ML INFUS..BTL IVPB STA (18:48)
[2018-08-11] MEDS ORDERED: Ketamine *HR* 500 MG/10 ML MDV ONE (19:02)
[2018-08-11] MEDS ORDERED: *HR* OxyCODONE Immed Rel 5 MG TABLET PO STA (19:05)
[2018-08-11] MEDS ORDERED: Ondansetron 4 MG/2 ML VIAL IVP ONE (20:01)
--- NOTE | 2018-08-11 21:07 | Anesthesia Evaluation Post Op ---
Date of Encounter: 08/11/18 Time of Encounter: 21:02 - Vital Signs Vital Signs: Last Vital Signs Temp 97.5 F L 08/11/18 19:28 Pulse 76 08/11/18 20:45 Resp 14 08/11/18 20:45 BP 111/47 08/11/18 20:45 Pulse Ox 95 08/11/18 20:45 - Lungs Lungs: Clear Ascult./Percussion - Airway Airway: Non-obstructed - Cardiovascular Regular Rate - Mental Status Mental Status: Alert & Oriented, Answers Appropriately - Pain Pain Scale: 6 - Nausea Vomiting Nausea Vomiting: Not Present - Hydration Hydration: Tolerates oral liquids - Discharge PostOp Status: Transfer Patient to floor (Patient still requiring supplemental oxygen.)
[2018-08-11] MEDS ORDERED: Temazepam 15 MG CAPSULE PO PRN (22:13)
[2018-08-11] MEDS ORDERED: traMADol 50 MG TABLET PO PRN (22:13)
[2018-08-11] MEDS ORDERED: MOM Conc 10 ML UD.LIQ PO PRN (22:13)
[2018-08-11] MEDS ORDERED: tiZANidine 4 MG TABLET PO PRN (22:13)
[2018-08-11] MEDS ORDERED: Naloxone 0.4 MG/ML INJ IVP PRN (22:13)
[2018-08-11] MEDS ORDERED: Sennosides 8.6 MG TABLET PO PRN (22:13)
[2018-08-11] MEDS: Ondansetron 4 MG/2 ML VIAL IVP PRN (22:41)
[2018-08-11] MEDS: Pregabalin 50 MG CAPSULE PO SCH (22:42)
[2018-08-12] MEDS: *HR* OxyCODONE/APAP 5/325 TABLET PO PRN ×3 (01:55→10:09)
[2018-08-12] MEDS: Ondansetron 4 MG/2 ML VIAL IVP PRN (04:51)
[2018-08-12 05:18] LABS: Hematocrit 32.8 % (35.3-44.9); Hemoglobin 10.7 g/dL (11.5-15.4)
[2018-08-12 05:37] LABS: BUN/Creatinine Ratio 22 (6-26); Blood Urea Nitrogen 15 mg/dL (8-23); Calcium 8.6 mg/dL (8.6-10.3); Carbon Dioxide 24 mEq/L (23-29); Chloride 101 mEq/L (98-107); Glucose 148 mg/dL (70-105); Osmolality,Calculated 284 (280-300); Potassium 4.3 mEq/L (3.5-5.1); Sodium 135 mEq/L (136-145); eGFR For Non-African Americans > 60 (> 60)
[2018-08-12] MEDS ORDERED: Levothyroxine 25 MCG TABLET PO SCH (06:30)
--- NOTE | 2018-08-12 07:14 | Orthopedics Progress Note ---
Date of Encounter: 08/12/18 Time of Encounter: 07:13 Subjective Interval history: Patient was seen this morning doing well without complaints. Afebrile vital signs stable. Operative extremity: Neurovascularly intact Dressing clean dry and intact Calves nontender Assessment and plan: Continue with postoperative care Discharged today Objective Vital signs: Vital Signs Temp Pulse Resp BP Pulse Ox 08/12/18 00:14 98.3 F 78 16 107/70 93 08/11/18 21:09 98.4 F 80 17 117/68 94 08/11/18 20:45 76 14 111/47 95 08/11/18 20:28 68 14 107/67 97 08/11/18 19:58 78 18 129/68 96 08/11/18 19:28 97.5 F L 81 16 130/78 95 08/11/18 19:22 98.1 F 85 14 126/65 93 08/11/18 19:12 83 12 140/69 96 08/11/18 19:02 81 12 119/63 98 08/11/18 18:52 98.4 F 80 10 137/61 99 08/11/18 18:42 76 8 136/66 100 08/11/18 18:32 83 14 130/58 100 08/11/18 18:22 99.3 F 88 14 144/82 100 08/11/18 15:22 97.6 F 71 18 123/70 96 Intake and Output 08/11/18 08/11/18 08/12/18 15:59 23:59 07:59 Intake Total 100 / 100 Output Total 200 / 200 Balance -100 / -100 Intake: IV Fluids 100 / 100 Ofirmev 1,000 mg/100 ml 1,000 100 / 100 mg In 100 ml @ 400 mls/hr IVPB NOW STA Rx#:[id number] Output: Estimated Blood Loss 200 / 200 Other: Weight 92.986 kg 93.1 kg Patient Weight 08/12/18 23:59 Weight 93.1 kg - Labs CBC & BMP: 08/12/18 04:35 08/12/18 04:35 Labs: Abnormal lab results RBC 3.76 M/mcL (3.82-4.97) L 08/11/18 15:50 Hgb 10.7 g/dL (11.5-15.4) L 08/12/18 04:35 Hct 32.8 % (35.3-44.9) L 08/12/18 04:35 MPV 9.1 fL (9.4-12.4) L 08/11/18 15:50 Sodium 135 mEq/L (136-145) L 08/12/18 04:35 Glucose 148 mg/dL (70-105) H 08/12/18 04:35 Consult Discharge Plan - Plan Instructions: Open Reduction Internal Fixation (DC) Additional Instructions: Okay to move elbow Okay to squeeze ball Do not move shoulder Do not remove dressing Okay to shower in 24 hours Follow Up Appointment * Please call your surgeon's office within 24 hours or next business day to schedule a follow up appointment. Home Medication List * You have been given a list of your current medications. If you have changes in your medications, update your list. * Provide a list of current medications to your primary care physician. * Carry a copy of your current medications with you in case of an emergency. Referrals: Denis Zimmerman DO [Primary Care Provider] -
[2018-08-12 07:21] VITALS: BP 96/61
--- NOTE | 2018-08-12 08:36 | Discharge Summary ---
Orders not resulted at time of discharge: Pending orders 08/13/18 04:00 Basic Metabolic Panel DAILY Hemoglobin and Hematocrit [HEME] DAILY Date of Encounter: 08/12/18 - Hospital Course Hospital course: Ms. Garcia is a 67 year old female - Time Spent with Patient Total time spent providing and/or coordinating discharge services: - Discharge Medications Prescriptions: New Clindamycin [Cleocin] 150 mg PO Q6HR #14 capsule FentaNYL PATCH [Duragesic] 12 mcg TD Q72H 3 Days #1 patch.[id number] No Action amLODIPine [Norvasc] 5 mg PO DAILY Levothyroxine [Synthroid] 25 mcg PO QAM Metoprolol XL (24 HR) Succ [Toprol Xl] 50 mg PO DAILY Pregabalin [Lyrica] 50 mg PO BID Tizanidine HCl 2 mg PO HS PRN PRN Reason: Spasms Desvenlafaxine [Desvenlafaxine ER] 50 mg PO DAILY Oxycodone HCl/Acetaminophen [Percocet 10-325 mg Tablet] 1 each PO Q8HR PRN PRN Reason: Pain Home Medications: Levothyroxine [Synthroid] 25 mcg PO QAM 09/26/17 [History] Metoprolol XL (24 HR) Succ [Toprol Xl] 50 mg PO DAILY 09/26/17 [History] Pregabalin [Lyrica] 50 mg PO BID 09/26/17 [History] amLODIPine [Norvasc] 5 mg PO DAILY 09/26/17 [History] Tizanidine HCl 2 mg PO HS PRN 02/17/18 [History] Clindamycin [Cleocin] 150 mg PO Q6HR #14 capsule 08/11/18 [Rx] Desvenlafaxine [Desvenlafaxine ER] 50 mg PO DAILY 08/11/18 [History] FentaNYL PATCH [Duragesic] 12 mcg TD Q72H 3 Days #1 patch.td72 08/11/18 [Rx] Oxycodone HCl/Acetaminophen [Percocet 10-325 mg Tablet] 1 each PO Q8HR PRN 08/11/18 [History] Allergies/Adverse Reactions: Allergy/AdvReac Type Severity Reaction Status Date / Time pentazocine [From Jazmin] Allergy Severe Unresponsiv Verified 08/01/18 06:14 e Sulfa (Sulfonamide AdvReac Vomiting Verified 08/01/18 06:14 Antibiotics) Date of admission: 08/11/18 20:44 Primary care physician: Denis Zimmerman DO Consults: 08/11/18 22:13 Consult to Occupational Therapy [CONS] Routine Comment: post shoulder surgery Reason for Consult: post shoulder surgery Does patient have active BEDREST order?: No Is patient medically & hemodynamically stable?: Yes Consult to Physical Therapy [CONS] Routine Comment: post shoulder surgery Reason for Consult: post shoulder surgery Does patient have active BEDREST order?: No Is patient medically & hemodynamically stable?: Yes Consult to Esthetician/Spa Coordinator [CONS] Routine Reason for SW Consult: shoulder surgery RT Post Op Consult [CONS] Routine Labs on day of discharge: Labs from last 24 hours 08/12/18 08/12/18 08/11/18 04:35 04:35 15:50 WBC RBC Hgb 10.7 L Hct 32.8 L MCV MCH MCHC RDW Plt Count MPV Immature Gran % Seg Neutrophils % Lymphocytes % Monocytes % Eosinophils % Basophils % Neutrophils # Lymphocytes # Monocytes # Eosinophils # Basophils # Sodium 135 L 140 Potassium 4.3 3.8 Chloride 101 104 Carbon Dioxide 24 27 BUN 15 18 Creatinine 0.69 0.65 Est GFR ( Amer) > 60 > 60 Est GFR (Non-Af Amer) > 60 > 60 BUN/Creatinine Ratio 22 28 H Glucose 148 H 98 Calculated Osmolality 284 292 Calcium 8.6 9.0 08/11/18 15:50 WBC 7.8 RBC 3.76 L Hgb 11.6 Hct 35.2 L MCV 93.6 MCH 30.9 MCHC 33.0 RDW 14.3 Plt Count 264 MPV 9.1 L Immature Gran % 0.5 Seg Neutrophils % 65.3 Lymphocytes % 24.0 Monocytes % 8.1 Eosinophils % 1.5 Basophils % 0.6 Neutrophils # 5.1 Lymphocytes # 1.9 Monocytes # 0.6 Eosinophils # 0.1 Basophils # 0.1 Sodium Potassium Chloride Carbon Dioxide BUN Creatinine Est GFR ( Amer) Est GFR (Non-Af Amer) BUN/Creatinine Ratio Glucose Calculated Osmolality Calcium - Impressions ITS Impressions Fluoroscopy 08/11/18 00:00 IMPRESSION: Intraprocedural fluoroscopic spot images as above. See separate procedure report for more information. D/ / Gato Srivastava MD / Gato Srivastava MD Interpreting Provider: Gato Srivastava MD Shoulder X-Ray 08/11/18 00:00 IMPRESSION: Intraprocedural fluoroscopic spot images as above. See separate procedure report for more information. D/ / Gato Srivastava MD / Gato Srivastava MD Interpreting Provider: Gato Srivastava MD - Discharge Instructions Instructions: Open Reduction Internal Fixation (DC) Follow Up With: Denis Zimmerman DO [Primary Care Provider] - Additional Instructions: Okay to move elbow Okay to squeeze ball Do not move shoulder Do not remove dressing Okay to shower in 24 hours Follow Up Appointment * Please call your surgeon's office within 24 hours or next business day to schedule a follow up appointment. Home Medication List * You have been given a list of your current medications. If you have changes in your medications, update your list. * Provide a list of current medications to your primary care physician. * Carry a copy of your current medications with you in case of an emergency.
[2018-08-12] MEDS: Pregabalin 50 MG CAPSULE PO SCH (08:47)
[2018-08-12] MEDS ORDERED: Venlafaxine XR (24 HR) 75 MG CAP.ER.24H PO SCH (09:00)
[2018-08-12] MEDS ORDERED: amLODIPine 5 MG TABLET PO SCH (09:00)
[2018-08-12] MEDS ORDERED: Metoprolol XL (24 HR) Succ 50 MG TAB.ER.24H PO SCH (09:00)
[2018-08-12] MEDS ORDERED: Fluconazole 100 MG TABLET PO ONE (11:01)
== END 2018-08-12 12:25 | disposition home or self-care (01) ==
LOC: SAMDAY 14:35 → 2ANU 14:35
PROVIDERS: ADMIT Orthopaedic Surgery; ATTEND Orthopaedic Surgery

== ENCOUNTER 2019-09-07 15:39 | Observation (INO) ==
[2019-09-07] MEDS ORDERED: Isovue-370 500 ML BOTTLE IVP ONE (15:49)
[2019-09-07] MEDS: 0.9 % Sodium Chloride 1,000 ML IVC SCH ×3 (15:55→22:16)
[2019-09-07] MEDS ORDERED: 0.9 % Sodium Chloride 1,000 ML ONE (16:07)
[2019-09-07 16:22] LABS: INR 1.1; Prothrombin Time 12.5 Seconds (9.4-12.1)
[2019-09-07 16:23] LABS: Basophils % 0.5 %; Eosinophils # 0.1 K/mcL (0.0-0.6); Eosinophils % 1.8 %; Hematocrit 36.7 % (35.3-44.9); Hemoglobin 11.8 g/dL (11.5-15.4); Immature Granulocytes % 0.4 % (0-4); Lymphocytes # 1.4 K/mcL (0.6-4.6); Lymphocytes % 16.9 %; Mean Corpuscular HGB Conc 32.2 g/dL (31.6-35.5); Mean Corpuscular Hemoglobin 29.9 pg (28.0-33.3); Mean Corpuscular Volume 93.1 fL (83.0-100.0); Mean Platelet Volume 9.9 fL (9.4-12.4); Monocytes # 0.7 K/mcL (0.0-1.3); Neutrophils # 5.7 K/mcL (1.6-8.9); Platelet Count 233 K/mcL (140-400); Red Blood Count 3.94 M/mcL (3.82-4.97); Red Cell Distribution Width 13.7 % (11.5-14.5); Segmented Neutrophils % 71.4 %
[2019-09-07 16:25] LABS: Activated Partial Thrombo Time 32.7 Seconds (26.0-36.0)
[2019-09-07] MEDS ORDERED: Acetaminophen 325 MG TABLET PO ONE (16:29)
[2019-09-07 16:47] LABS: Troponin I < 0.03 ng/mL (< 0.04)
[2019-09-07 16:53] LABS: Alanine Aminotransferase 10 Units/L (7-52); Albumin 4.2 g/dL (3.5-5.7); Albumin/Globulin Ratio 1.9 (1.1-2.2); Alkaline Phosphatase 78 Units/L (34-104); Aspartate Amino Transferase 16 Units/L (13-39); BUN/Creatinine Ratio 15 (6-26); Bilirubin,Direct 0.1 mg/dL (0.0-0.2); Bilirubin,Indirect 0.3 mg/dL (0.0-1.0); Bilirubin,Total 0.4 mg/dL (0.3-1.0); Blood Urea Nitrogen 26 mg/dL (8-23); Carbon Dioxide 27 mEq/L (23-29); Chloride 102 mEq/L (98-107); Globulin 2.2 g/dL (2.4-3.5); Glucose 120 mg/dL (70-105); Lipase 26 Units/L (11-82); Magnesium 2.2 mg/dL (1.6-2.6); Osmolality,Calculated 294 (280-300); Phosphorous 5.1 mg/dL (2.7-4.5); Potassium 3.8 mEq/L (3.5-5.1); Sodium 139 mEq/L (136-145); Total Protein 6.4 g/dL (6.4-8.9); eGFR For African Americans 35 (> 60); eGFR For Non-African Americans 29 (> 60)
[2019-09-07] MEDS ORDERED: Piperacillin/Tazobactam 3.375 GM in 0.9 % Sodium Chloride Mini Bag 100 ML IVPB ONE (17:06)
[2019-09-07 19:11] LABS: Bilirubin,Urine Negative (Negative); Blood,Urine Trace (Negative); Clarity,Urine Clear (Clear); Color,Urine Yellow (Yellow); Glucose,Urine (UA) Normal (Normal); Ketones,Urine Negative (Negative); Leukocyte Esterase,Urine Small (Negative); Nitrite,Urine Negative (Negative); PH,Urine 5.5 pH Units (5.0-8.0); Protein,Urine 30 mg/dL (Neg-Trace); Specific Gravity,Urine 1.018 (1.010-1.025); Urobilinogen,Urine Normal (Normal)
[2019-09-07 19:12] LABS: Bacteria,Urine None Seen per hpf (None-Few); Hyaline Casts,Urine Few per lpf (None-Few); RBC,Urine 0-3 per hpf (0-3); Squamous Epithelial Cell,Urine Many per lpf (None-Few)
[2019-09-07] MEDS ORDERED: Naloxone 0.4 MG/ML INJ IVP PRN (21:13)
[2019-09-07] MEDS ORDERED: tiZANidine 4 MG TABLET PO PRN (21:14)
[2019-09-07] MEDS: Venlafaxine XR (24 HR) 75 MG CAP.ER.24H PO SCH (21:34)
[2019-09-07] MEDS: *HR* Heparin 5,000 UNIT/ML VIAL SQ SCH (22:16)
[2019-09-07] MEDS: *HR* OxyCODONE/APAP 5/325 TABLET PO SCH (22:16)
[2019-09-08 01:10] LABS: Basophils % 0.3 %; Eosinophils # 0.2 K/mcL (0.0-0.6); Eosinophils % 2.6 %; Hematocrit 32.1 % (35.3-44.9); Hemoglobin 10.4 g/dL (11.5-15.4); Immature Granulocytes % 0.1 % (0-4); Lymphocytes # 1.6 K/mcL (0.6-4.6); Lymphocytes % 21.5 %; Mean Corpuscular HGB Conc 32.4 g/dL (31.6-35.5); Mean Corpuscular Volume 92.5 fL (83.0-100.0); Mean Platelet Volume 10.2 fL (9.4-12.4); Monocytes # 0.7 K/mcL (0.0-1.3); Monocytes % 9.2 %; Neutrophils # 4.8 K/mcL (1.6-8.9); Platelet Count 201 K/mcL (140-400); Red Blood Count 3.47 M/mcL (3.82-4.97); Red Cell Distribution Width 13.6 % (11.5-14.5); Segmented Neutrophils % 66.3 %; White Blood Count 7.3 K/mcL (4.3-11.1)
[2019-09-08 01:28] LABS: BUN/Creatinine Ratio 20 (6-26); Blood Urea Nitrogen 22 mg/dL (8-23); Calcium 8.3 mg/dL (8.6-10.3); Carbon Dioxide 24 mEq/L (23-29); Chloride 106 mEq/L (98-107); Glucose 149 mg/dL (70-105); Osmolality,Calculated 290 (280-300); Potassium 3.5 mEq/L (3.5-5.1); Sodium 137 mEq/L (136-145); eGFR For African Americans > 60 (> 60); eGFR For Non-African Americans 50 (> 60)
[2019-09-08] MEDS: *HR* OxyCODONE/APAP 5/325 TABLET PO SCH ×4 (03:55→21:33)
[2019-09-08] MEDS: *HR* Heparin 5,000 UNIT/ML VIAL SQ SCH ×3 (05:53→21:33)
[2019-09-08] MEDS ORDERED: Metoprolol XL (24 HR) Succ 50 MG TAB.ER.24H PO SCH (09:00)
[2019-09-08] MEDS: Pregabalin 75 MG CAPSULE PO SCH ×2 (09:20→21:33)
[2019-09-08] MEDS: amLODIPine 5 MG TABLET PO SCH (09:20)
[2019-09-08] MEDS: Venlafaxine XR (24 HR) 75 MG CAP.ER.24H PO SCH (09:22)
[2019-09-08] MEDS: 0.9 % Sodium Chloride 1,000 ML IVC SCH (12:50)
[2019-09-09 02:42] VITALS: BP 162/81
[2019-09-09] MEDS: *HR* OxyCODONE/APAP 5/325 TABLET PO SCH ×2 (03:56→10:10)
[2019-09-09] MEDS: 0.9 % Sodium Chloride 1,000 ML IVC SCH (03:57)
[2019-09-09] MEDS: *HR* Heparin 5,000 UNIT/ML VIAL SQ SCH (05:43)
[2019-09-09] MEDS: Venlafaxine XR (24 HR) 75 MG CAP.ER.24H PO SCH (08:47)
[2019-09-09] MEDS: amLODIPine 5 MG TABLET PO SCH (08:47)
[2019-09-09] MEDS: Pregabalin 75 MG CAPSULE PO SCH (08:47)
== END 2019-09-09 10:38 | disposition home or self-care (01) ==
LOC: EMEROOARM 15:39 → 3BNU 15:39
PROVIDERS: ADMIT Internal Medicine; ATTEND Internal Medicine